=== PATIENT | female | born 1945 | race Caucasian/White ===

== ENCOUNTER 2016-12-05 13:08 | Inpatient (IN) | payer OTHER, MEDICARE ==
[~2016-12-05] VITALS: Ht 162.6 cm; Wt 109.0 kg
[~2016-12-05 13:08] MED LIST: BUME1TAB PO; CITRTAB7 PO; CYMB30CA PO; DABI150 PO; DILT-10 PO; GLUM500T PO; KLOR20TA6 PO; LEVO100T4 PO; MECL25 PO; METO50TA PO; METO50TA11 PO; NEXI40GR PO; OCUVTAB PO; PREG100 PO; [UNRECOGNIZED DRUG - CODE] PO
[2016-12-05 13:11] VITALS: BP 97/64; PULSE 73; RESP 14; TEMP 98.2; O2SAT 93
[2016-12-05] MEDS ORDERED: BUME1TAB PO (14:03)
[2016-12-05] MEDS ORDERED: LEVO75TA3 PO (14:03)
[2016-12-05] MEDS ORDERED: POTA-163 PO (14:03)
[2016-12-05] MEDS ORDERED: PRAD150C PO (14:03)
[2016-12-05] MEDS ORDERED: CALC12502 PO (14:03)
[2016-12-05] MEDS ORDERED: FENO2.5C PO (14:03)
[2016-12-05] MEDS ORDERED: METO50TA PO (14:03)
[2016-12-05] MEDS ORDERED: SIMV20TA PO (14:03)
[2016-12-05] MEDS ORDERED: CYMB60CA PO (14:03)
[2016-12-05] MEDS ORDERED: DILT1TAB6 PO (14:03)
[2016-12-05] MEDS ORDERED: NEXI40CA PO (14:03)
[2016-12-05] MEDS ORDERED: OCUVTAB PO (14:03)
[2016-12-05] MEDS ORDERED: LYRI100C PO (14:03)
[2016-12-05] MEDS ORDERED: METF500T PO (14:08)
--- NOTE | 2016-12-05 14:11 | PD ---
HPI Chief Complaint: Injury Time Seen by Provider: 14:11 Travel History International Travel<30 days: No Contact w/Intl Traveler<30days: No Traveled to known affect area: No History of Present Illness HPI 71-year-old female with history of hypertension, hyperlipidemia, A. fib, congestive heart failure, anticoagulated on Pradaxa presents to the emergency department for evaluation of left knee injury status post trip and fall. Patient states that [place] she actually tripped over a concrete parking block falling onto her left knee and her outstretched hands. She is complaining of pain and swelling in her left knee, is unable to bear weight on the knee secondary to pain. She also has some pain and soreness in the palms of her hands. Denies head trauma or loss of consciousness. States that she did have a previous stress fracture in her left tibia but otherwise denies any prior injury or trauma to this knee. No other complaints. PFSH Past Medical History Atrial Fibrillation: Yes Cancer: No Cardiac Catheterization: Yes Cardiovascular Problems: Yes (heart failure, stint, a fib) High Cholesterol: Yes Congestive Heart Failure: Yes Diabetes: Yes Patient Takes Glucophage: Yes Diminished Hearing: No Endocrine: No Gastrointestinal Disorders: Yes (GERD) GERD: Yes Hepatitis: No Hiatal Hernia: No Hypertension: Yes Immune Disorder: No Neurologic: No Psychiatric: No Reproductive: No Respiratory: No Immunizations Current: Yes Thyroid Disease: Yes Tetanus Vaccination: < 5 Years Influenza Vaccination: Yes Past Surgical History Abdominal Surgery: Yes (INTERSTEM STIMULATOR hip for bladder) AICD: No Body Medical Devices: [employer] 3058 NEUROSTIMULATOR SERIAL NO. [id number] Cardiac Surgery: Yes (stint 2005) Coronary Stent: Yes (X1) Ear Surgery: No Endocrine Surgery: No Eye Surgery: Yes (anay cateracts 2015 / RIGHT TORN RETINA 2016) Genitourinary Surgery: No Gynecologic Surgery: Yes (hysterectomy 2006) Hysterectomy: Yes Joint Replacement: No Oral Surgery: No Pacemaker: No Thoracic Surgery: No Other Surgery: Yes (BILAT CARPAL TUNNEL , HEMORRHOIDECTOMY) Social History Alcohol Use: Yes Tobacco Use: No Substance Use: No Allergies-Medications (Allergen,Severity, Reaction): Coded Allergies: Procardia (Verified Allergy, Severe, Respiratory Failure, 12/05/16) Soma (Verified Allergy, Severe, Hives, 12/05/16) Talwin (Verified Allergy, Severe, Dizziness, 12/05/16) Tetanus Toxoid (Verified Allergy, Severe, Swelling, 12/05/16) Adhesives (Unverified Allergy, Intermediate, 12/05/16) Reported Meds & Prescriptions Reported Meds & Active Scripts Active Reported Metformin (Metformin HCl) 500 Mg Tab 500 Mg PO BIDPC With meals Simvastatin 20 Mg Tab 20 Mg PO DAILY Pradaxa (Dabigatran) 150 Mg Cap 150 Mg PO BID Ocuvite (Multiple Vitamins W/ Minerals) 1 Tab 1 Tab PO DAILY Nexium (Esomeprazole DR) 40 Mg Capdr 40 Mg PO DAILY Metoprolol Tartrate 50 Mg Tab 50 Mg PO BID Potassium Chloride ER (Potassium Chloride) 20 Meq Tab 20 Meq PO DAILY Lyrica (Pregabalin) 100 Mg Cap 100 Mg PO TID Levothyroxine (Levothyroxine Sodium) 75 Mcg Tab 75 Mcg PO DAILY Fenofibrate 50 Mg Cap 100 Mg PO DAILY Diltiazem ER 24 HR 300 Mg Liz 300 Mg PO DAILY Cymbalta DR (Duloxetine HCl) 60 Mg Capdr 60 Mg PO DAILY Calcium Carbonate 1,250 Mg Tab 600 Mg PO DAILY 1,250 mg calcium carbonate (500 mg elemental calcium) Bumetanide 1 Mg Tab 1 Mg PO DAILY Review of Systems Except as stated in HPI: all other systems reviewed are Neg Physical Exam Narrative GENERAL: Well-nourished and well-developed pleasant female patient in no acute distress. SKIN: Warm and dry. HEAD: Normocephalic and atraumatic. EYES: No injection, drainage, or hyphema noted. PERRLA. EOMI. ENT: No nasal drainage noted. Oropharynx is clear. NECK: Supple and the trachea is midline. CARDIOVASCULAR: Regular rate and rhythm. RESPIRATORY: Breath sounds are equal bilaterally with no accessory muscle use, wheezing, rhonchi, or crackles. MUSCULOSKELETAL: Swelling and bruising of left knee with tenderness to palpation and decreased range of motion. Mild tenderness of left hip. No obvious deformities or cyanosis is present throughout the upper and lower extremities. Patient has full range of motion without any signs of neurovascular compromise. DP pulses are 2+ bilaterally. Sensation is intact. BACK: Nontender without any obvious deformities, bony point tenderness, or crepitus noted throughout the thoracic and lumbar vertebrae. NEUROLOGICAL: Awake, alert, and oriented. Normal speech and gait. Cranial nerves are grossly intact. Data Data Last Documented VS Vital Signs Date Time Temp Pulse Resp B/P Pulse Ox O2 Delivery O2 Flow Rate FiO2 12/05/16 13:11 98.2 73 14 97/64 93 Room Air Orders Knee, Complete (4vws) (12/05/16 14:08) Hand, Complete ([id number]) (12/05/16 14:08) Hand, Complete ([id number]) (12/05/16 14:08) Acetamin-Hydrocod 325-5 Mg ([place] 5-325 (12/05/16 14:15) Hip, Uni(Ap&Lat) W Ap Pelvis (12/05/16 ) Splint Or Brace Apply/Monitor (12/05/16 16:03) Immobilizer Knee 20 Inch (12/05/16 ) Complete Blood Count With Diff (12/05/16 16:58) Prothrombin Time / Inr (Pt) (12/05/16 16:58) Act Partial Throm Time (Ptt) (12/05/16 16:58) Iv Access Insert/Monitor (12/05/16 16:58) Ecg Monitoring (12/05/16 16:58) Oximetry (12/05/16 16:58) Sodium Chloride 0.9% Flush (Ns Flush) (12/05/16 17:00) Chest, Single Ap (12/05/16 16:58) Comprehensive Metabolic Panel (12/05/16 16:58) Urinary Catheter Management TOMEKA.Q8H (12/05/16 16:58) Electrocardiogram (12/05/16 17:02) Ice Cuff (12/05/16 ) Diet 2000 Ada Cons Carb (12/05/16 Dinner) Admit Order (Ed Use Only) (12/05/16 17:39) Consult Orthopedic (12/05/16 ) [facility] Medical Decision Making Medical Screen Exam Complete: Yes Emergency Medical Condition: Yes Differential Diagnosis Fracture versus contusion versus sprain Narrative Course 71-year-old female presents to the emergency department for evaluation of left knee pain status post trip and fall. Patient is afebrile, vital signs are stable. No head trauma or loss of consciousness. She does have swelling in the left knee with pain. All extremities are neurovascularly intact. X-ray imaging of the left knee, left hip and bilateral hands has been ordered and is pending. X-ray of the left knee shows displaced fracture through the midportion of the patella with suprapatellar joint effusion and prepatellar soft tissue swelling. X-ray imaging of the right hand is negative for any acute abnormalities. X-ray imaging of the left hand shows a left fifth distal phalanx fracture. X-ray imaging of the left hip is negative for any acute abnormalities. The patient's left knee is placed in a knee immobilizer. The patient is reporting that she did fracture her left fifth distal phalanx 1 month ago and was already seen at another facility for that fracture, states it is not causing her any pain, on physical exam and is not swollen and she has full range of motion in the finger. Patient will be admitted to medicine service with orthopedic consultation. Physician Communication Physician Communication I spoke with Dr. Melara orthopedic surgeon who requests patient be admitted to medicine with consult to him for surgical repair tomorrow. I spoke with Dr. Banks [facility] who agrees to admit the patient to his service. Diagnosis Primary Impression: Fracture of left patella Qualified Code: S82.002A - Closed displaced fracture of left patella, unspecified fracture morphology, initial encounter Admitting Information Admitting Physician Requests: Admit Bernadette Caceres Dec 05, 2016 14:11
[2016-12-05] MEDS ORDERED: ACETAMINOPHEN/HYDROcodone 325 MG/5 MG TAB PO ONE (14:15)
--- NOTE | 2016-12-05 15:27 | RADRPT ---
EXAM DATE/TIME: 12/05/2016 14:42 [facility] COMPARISON: No previous studies available for comparison. INDICATIONS : Fell today, pain in both palms, the left hip and the left knee MEDICAL HISTORY : None. SURGICAL HISTORY : None. ENCOUNTER: Initial ACUITY: 1 day PAIN SCORE: 7/10 LOCATION: Left hip FINDINGS: Examination of the left hip was performed with AP Pelvis. The primary and secondary trabecular patte rn of the femoral neck is intact. The hip joint is of normal width without significant sclerosis or bony hypertrophy. The acetabulum is grossly intact. A spinal stimulator is projected over the right side of the sacrum. CONCLUSION: Negative trauma study. Gallo Black MD on December 05, 2016 at 15:24 Board Certified Radiologist. This report was verified electronically.
--- NOTE | 2016-12-05 15:29 | RADRPT ---
EXAM DATE/TIME: 12/05/2016 14:59 [facility] COMPARISON: HAND LEFT COMPLETE ([id number]), December 05, 2016, 15:13. INDICATIONS : Fell today, pain in right anterior hand MEDICAL HISTORY : None. SURGICAL HISTORY : None. ENCOUNTER: Initial ACUITY: 1 day PAIN SCORE: 8/10 LOCATION: Right hand FINDINGS: There is no acute fracture or dislocation of the right hand. Joint space narrowing is noted involving the scaphotrapezium and scaphotrapezoid joints, first carpometacarpal joint, first, second and third metacarpophalangeal joints and to a lesser degree the interphalangeal joints of the right hand. Th e findings are suggestive of probable osteoarthritis. CONCLUSION: 1. No acute fracture or dislocation. 2. Joint space narrowing involving the scaphotrapezium and scaphotrapezoid joints, first carpometacar pal joint, first, second and third metacarpophalangeal joints and to a lesser extend the interphalang eal joints of the right hand. These findings are suggestive of osteoarthritis. Carl Caicedo MD on December 05, 2016 at 15:20 Board Certified Radiologist. This report was verified electronically.
--- NOTE | 2016-12-05 15:31 | RADRPT ---
EXAM DATE/TIME: 12/05/2016 15:13 [facility] COMPARISON: No previous studies available for comparison. INDICATIONS: Fell today; left knee pain MEDICAL HISTORY: None. SURGICAL HISTORY: None. ENCOUNTER: Initial ACUITY: 1 day PAIN SCORE: 8/10 LOCATION: Left FINDINGS: There is evidence of an acute mildly displaced fracture involving the mid portion of the patella with extensive prepatellar soft tissue swelling and large suprapatellar knee joint effusion. Mild osteoa rthritis is noted involving the medial femoral tibial joint and the patellofemoral joints. CONCLUSION: 1. Acute displaced fracture through the mid portion of the patella. 2. Large suprapatellar knee joint effusion. 3. Diffuse prepatellar soft tissue swelling. 4. Mild osteoarthritis involving the medial femoral tibial joint and the patellofemoral joint. Carl Caicedo MD on December 05, 2016 at 15:24 Board Certified Radiologist. This report was verified electronically.
--- NOTE | 2016-12-05 15:45 | RADRPT ---
EXAM DATE/TIME: 12/05/2016 15:13 [facility] COMPARISON: No previous studies available for comparison. INDICATIONS : Pain fell today MEDICAL HISTORY : None. SURGICAL HISTORY : None. ENCOUNTER: Initial ACUITY: 1 day PAIN SCORE: 8/10 LOCATION: Left Anterior FINDINGS: AP, lateral and oblique views of left hand were obtained and demonstrate diffuse osteopenia. There is a nondisplaced fracture deformity involving the fifth distal phalanx with mild soft tissue prominenc e. There are no other fractures. There are diffuse degenerative changes with joint space loss, sclero sis and mild hypertrophic change. This is greatest involving the first metacarpocarpal joint with rem odeling. The ulnar styloid is intact. There is no destructive change. CONCLUSION: 1. Nondisplaced fracture involving the fifth distal phalanx. 2. Osteopenia and diffuse osteoarthritic change. Gallo Black MD on December 05, 2016 at 15:41 Board Certified Radiologist. This report was verified electronically.
[2016-12-05] MEDS ORDERED: SODIUM CHLORIDE 0.9% FLUSH 5 ML FLUSH IVF PRN (17:00)
--- NOTE | 2016-12-05 17:28 | RADRPT ---
EXAM DATE/TIME: 12/05/2016 15:17 [facility] COMPARISON: CHEST SINGLE AP, March 19, 2014, 17:56. INDICATIONS : Evaluate for pneumonia, pneumothorax or communicable disease. Pre-op left knee surgery 12/06/16. MEDICAL HISTORY : Hypertension. Congestive heart failure. A-FIB. SURGICAL HISTORY : Stent. ENCOUNTER: Initial ACUITY: 1 day PAIN SCORE: 0/10 LOCATION: Bilateral chest FINDINGS: A single view of the chest demonstrates the lungs to be symmetrically aerated without evidence of mas s, infiltrate or effusion. The heart size is mildly prominent. There is no perihilar edema. Atherosc lerotic changes are again noted in the aorta. Osseous structures are intact. CONCLUSION: Mild cardiomegaly with no evidence of pulmonary edema. Gallo Black MD on December 05, 2016 at 17:26 Board Certified Radiologist. This report was verified electronically.
[2016-12-05 19:07] LABS: AUTOMATED NEUTROPHIL # 6.9 TH/MM3 (1.8-7.7); BASOPHIL # 0.1 TH/MM3 (0-0.2); BASOPHIL % 1.2 % (0.0-2.0); EOSINOPHIL # 0.2 TH/MM3 (0-0.4); EOSINOPHIL % 1.7 % (0.0-4.0); HEMATOCRIT 42.8 % (35.0-46.0); HEMO FLAGS DIFF FINAL; LYMPHOCYTE # 2.2 TH/MM3 (1.0-4.8); MEAN CORPUSCULAR HEMOGLOBIN 30.5 PG (27.0-34.0); MEAN CORPUSCULAR HGB CONC 34.3 % (32.0-36.0); MONO % 10.3 % (0.0-8.0); NEUT % 65.8 % (16.0-70.0); PLATELET COUNT 197 TH/MM3 (150-450); RED CELL DISTRIBUTION WIDTH 14.8 % (11.6-17.2); WHITE BLOOD COUNT 10.4 TH/MM3 (4.0-11.0)
[2016-12-05 19:18] LABS: APTT (PATIENT) 28.1 SEC (24.3-30.1); INTERNATIONAL NORMALIZED RATIO 1.1 RATIO; PROTHROMBIN TIME - PATIENT 12.7 SEC (9.8-11.6)
[2016-12-05 19:38] LABS: ANION GAP 8 MEQ/L (5-15); AST (GOT) 24 U/L (15-37); BICARBONATE 27.5 MEQ/L (21.0-32.0); BLOOD UREA NITROGEN 19 MG/DL (7-18); CHLORIDE 104 MEQ/L (98-107); GLOMERULAR FILTRATION RATE 61 ML/MIN (>89); POTASSIUM 3.4 MEQ/L (3.5-5.1); SODIUM (NA) 139 MEQ/L (136-145)
[2016-12-05 19:41] LABS: ALKALINE PHOSPHATASE 68 U/L (45-117); ALT (GPT) 21 U/L (10-53); TOTAL BILIRUBIN ADULT 0.7 MG/DL (0.2-1.0)
[2016-12-05 20:00] VITALS: BP 127/68; PULSE 75; RESP 18; O2SAT 95
[2016-12-05] MEDS ORDERED: D5-1/2 NS + KCL 20 MEQ INJ 1,000 ML IV SCH (20:24)
[2016-12-05] MEDS ORDERED: MAGNESIUM HYDROXIDE SUSP 30 ML CUP PO PRN (20:30)
[2016-12-05] MEDS ORDERED: NALOXONE HCL 0.4 MG/ML AMP IV PRN (20:30)
[2016-12-05] MEDS ORDERED: SENNOSIDES 8.6 MG TAB PO PRN (20:30)
[2016-12-05] MEDS ORDERED: ACETAMINOPHEN 325 MG TAB PO PRN (20:30)
[2016-12-05] MEDS ORDERED: SODIUM CHLORIDE 0.9% FLUSH 5 ML FLUSH FLUSH PRN (20:30)
[2016-12-05 21:10] VITALS: O2SAT 97
[2016-12-05] MEDS: SODIUM CHLORIDE 0.9% FLUSH 5 ML FLUSH FLUSH SCH (21:38)
[2016-12-05] MEDS: METOPROLOL TARTRATE 50 MG TAB PO SCH (21:52)
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
[2016-12-05] MEDS ORDERED: HEPARIN-D5W INJ 250 ML IV SCH (23:15)
[2016-12-05] MEDS: MORPHINE SULFATE 4 MG/ML INJ IV PUSH PRN (23:35)
[2016-12-05] MEDS: ONDANSETRON HCL 4 MG/2 ML VIAL IVP PRN (23:35)
[2016-12-06 02:25] VITALS: BP 109/65; PULSE 62; RESP 18; O2SAT 94
[2016-12-06 04:36] LABS: AUTOMATED NEUTROPHIL # 4.8 TH/MM3 (1.8-7.7); BASOPHIL # 0.1 TH/MM3 (0-0.2); BASOPHIL % 1.3 % (0.0-2.0); EOSINOPHIL # 0.3 TH/MM3 (0-0.4); HEMATOCRIT 38.8 % (35.0-46.0); HEMO FLAGS DIFF FINAL; LYMPH % 26.5 % (9.0-44.0); LYMPHOCYTE # 2.2 TH/MM3 (1.0-4.8); MEAN CELL VOLUME 88.5 FL (80.0-100.0); MEAN CORPUSCULAR HGB CONC 33.9 % (32.0-36.0); MONO % 12.2 % (0.0-8.0); PLATELET COUNT 181 TH/MM3 (150-450); RED BLOOD COUNT 4.38 MIL/MM3 (4.00-5.30); RED CELL DISTRIBUTION WIDTH 15.2 % (11.6-17.2); WHITE BLOOD COUNT 8.5 TH/MM3 (4.0-11.0)
[2016-12-06 04:54] LABS: APTT (PATIENT) 47.5 SEC (24.3-30.1)
[2016-12-06 05:00] LABS: BICARBONATE 25.5 MEQ/L (21.0-32.0); POTASSIUM 3.8 MEQ/L (3.5-5.1)
[2016-12-06] MEDS: LEVOTHYROXINE SODIUM 75 MCG TAB PO SCH (06:00)
[2016-12-06 06:51] VITALS: BP 137/63; PULSE 87; RESP 18; O2SAT 99
[2016-12-06] MEDS: MORPHINE SULFATE 4 MG/ML INJ IV PUSH PRN (07:27)
--- NOTE | 2016-12-06 07:35 | PD.ORT.PN ---
Subjective Subjective Remarks [place] was at dog park coming back to car when tripping over a parking curb. Fell down onto left knee. Had immediate pain and was unable to stand. Brought to the emergency room and x-rays reveal a comminuted left patella fracture. She is in a knee immobilizer Objective Vitals Vital Signs Date Time Temp Pulse Resp B/P Pulse Ox O2 Delivery O2 Flow Rate FiO2 12/06/16 06:51 87 18 137/63 99 Room Air 12/06/16 02:25 62 18 109/65 94 Room Air 12/05/16 23:35 18 12/05/16 21:10 97 Room Air 12/05/16 20:00 75 18 127/68 95 12/05/16 13:11 98.2 73 14 97/64 93 Room Air Result Diagram: 12/06/16 0408 12/06/16 0408 Other Results Laboratory Tests Test 12/05/16 18:30 Prothrombin Time 12.7 SEC (9.8-11.6) Prothromb Time International 1.1 RATIO Ratio Imaging Last 24 hours Impressions Chest X-Ray 12/05/16 1658 Signed Impressions: Service Date/Time: Monday, December 05, 2016 15:17 - CONCLUSION: Mild cardiomegaly with no evidence of pulmonary edema. Gallo Black MD Knee X-Ray 12/05/161407 Signed Impressions: Service Date/Time: Monday, December 05, 2016 15:13 - CONCLUSION: 1. Acute displaced fracture through the mid portion of the patella. 2. Large suprapatellar knee joint effusion. 3. Diffuse prepatellar soft tissue swelling. 4. Mild osteoarthritis involving the medial femoral tibial joint and the patellofemoral joint. Carl Caicedo MD Hand X-Ray 12/05/16 140 Signed Impressions: Service Date/Time: Monday, December 05, 2016 15:13 - CONCLUSION: 1. Nondisplaced fracture involving the fifth distal phalanx. 2. Osteopenia and diffuse osteoarthritic change. Gallo Black MD Hand X-Ray 12/05/161407 Signed Impressions: Service Date/Time: Monday, December 05, 2016 14:59 - CONCLUSION: 1. No acute fracture or dislocation. 2. Joint space narrowing involving the scaphotrapezium and scaphotrapezoid joints, first carpometacarpal joint, first, second and third metacarpophalangeal joints and to a lesser extend the interphalangeal joints of the right hand. These findings are suggestive of osteoarthritis. Carl Caicedo MD Objective Remarks Bilateral upper extremities: Full range of motion neurovascularly intact Right lower extremity: Full range of motion neurovascular intact Left lower extremity: Knee immobilizer and ice cuff in place. Minimal pain with palpation and movement of hip. Distally intact sensation with good capillary refills. Skin intact over patella with moderate swelling. Intact sensation distally Assessment & Plan Assessment and Plan Left comminuted mildly displaced patella fracture Due to alignment of patella is recommended that we treat this nonoperatively. She will have ice cuff removed and remain in knee immobilizer at all times. No flexion of the knee and no active leglifts or quad sets PT for 50% weightbearing on the left lower extremity If safe with physical therapy may be discharged home. Follow-up x-rays will be performed in 2 weeks to evaluate fracture alignment. Risks with delayed healing of diabetes is discussed. GALLO RECIO PA-C Dec 06, 2016 07:35
[2016-12-06] MEDS ORDERED: WALKER/ADULT/FO1 MIS (07:38)
--- NOTE | 2016-12-06 08:58 | MB ---
cc: HETAL PINEDA DATE OF ADMISSION 12/05/2069 DATE OF CONSULTATION 12/06/2016 REASON FOR CONSULTATION Left patella fracture. CONSULTING PHYSICIAN Dr. Banks ERVIN Wallace is a 71-year-old female who describes a mechanical fall. She was walking her dog to the park. She fell and landed on her left knee. She had immediate left knee pain. She had difficulty standing or ambulating. She had swelling and pain around the left knee. She presented emergency room where x-rays reveal a left patella fracture. She also has a nondisplaced fracture of the left hand fifth finger distal phalanx. The pain is worse with movement of her knee is improved with rest. She denies any dizziness, syncope or loss of consciousness. She did not hit her head. PAST MEDICAL HISTORY ILLNESSES 1. Hypothyroidism. 2. CHF. 3. Coronary artery disease. 4. Atrial fibrillation. 5. Reflux. 6. Type 2 diabetes. 7. Arthritis. 8. Hypertension. 9. Peripheral neuropathy. 10. History of pulmonary embolism. SURGICAL HISTORY 1. Bilateral cataracts, 2. Retinal detachment repair. 3. Cardiac stent placement. 4. Bilateral carpal tunnel syndrome. 5. Hemorrhoidectomy. 6. Hysterectomy. MEDICATIONS 1. Metformin. 2. Simvastatin. 3. Pradaxa. 4. Ocuvite. 5. Nexium. 6. Metoprolol. 7. Potassium. 8. Lyrica. 9. Levothyroxine. 10. Fenofibrate. 11. Calcium. 12. Bumetanide. ALLERGIES PROCARDIA. SOMA. TALWIN. TETANUS. ADHESIVES. FAMILY HISTORY Positive for CVA and diabetes in her mother and coronary artery disease in father. SOCIAL HISTORY The patient rarely drinks alcohol. She quit smoking 40 years ago. REVIEW OF SYSTEMS The patient denies headache, visual changes, neck pain, chest pain, abdominal pain, nausea, vomiting, recent weight loss or numbness or tenting of extremities. She complains of left knee pain. She has chronic low back pain. She has a history of urinary incontinence. PHYSICAL EXAMINATION GENERAL: The patient is a well-developed, well-nourished 71-year-old female in no acute distress. She is awake and alert. She is alert and oriented x 3. VITAL SIGNS: Temperature 98.2, pulse 87, respirations 18, blood pressure 137/63, O2 sat 99% on room air. HEAD: The patient is normocephalic. Pupils are equal. NECK: Soft, nontender. Trachea is midline. ABDOMEN: Soft, nontender, nondistended. EXTREMITIES: Examination of bilateral upper extremities reveals no significant pain with shoulder, elbow or wrist motion. She has intact sensation in all fingers. She has good capillary refill in all fingers. Radial pulses palpable. She does have some tenderness along her left distal fifth finger. Radial pulses are palpable. Examination of right leg reveals no pain with hip, knee or ankle motion. Skin is intact. Dorsalis pedis pulse is palpable. Sensation is intact. Examination of the left leg reveals no tenderness around her hip ankle or foot. Sensation is intact in her left foot. Dorsalis pedis pulses palpable. She is diffusely tender to palpation over the left knee. Skin is intact. There is swelling around the left knee. X-RAYS X-rays of left knee were reviewed. X-rays reveal a mildly displaced left patella fracture. There is a small step-off of the articular surface. IMPRESSION Mildly displaced left patella fracture. PLAN The treatment options were discussed with the patient. I discussed both surgical and nonsurgical options. At this point the fracture is relatively well-aligned. There is a small step-off of the articular surface. Given the patient's multiple medical problems, I feel that nonoperative treatment may be in her best interest. The risks of surgery include bleeding, infection, injury to arteries, nerves and blood vessels, painful hardware, wound complications, infection as well as medical complications including blood clot, stroke, heart attack and were discussed. At this point the patient would like to proceed with nonoperative treatment. She will remain in a knee immobilizer. Physical Therapy will be consulted. She may partial weight-bear up to 50% with knee immobilizer on. She will need to follow up in clinic in 1-2 weeks for repeat x-rays of the left knee. If fracture displaces, surgical intervention may become necessary. All questions were answered. A mid-level provider in my office, nurse practitioner or PA, may see this patient on a follow-up basis and continue to implement the objective of this plan including: Starting or adjusting medications, injections of muscle, tendon, bursa or joints, cast application, orthotic or brace application, physical therapy, further radiographic studies including x-ray, MRI, CT, ultrasounds or bone scan, vascular studies, neurologic studies, or other specialist consultations, and proceeding with surgical management as appropriate. MD MAGED Soto/DIAZ /8:14 AM /8:46 AM
[2016-12-06] MEDS ORDERED: FENOFIBRATE 48 MG TAB PO SCH (09:00)
[2016-12-06] MEDS ORDERED: HYDR-3533 PO (09:39)
--- NOTE | 2016-12-06 09:49 | HHI.PR ---
Subjective Remarks Patient seen in follow-up for left patella fracture secondary to mechanical fall and multiple medical problems listed below. She reports having significant pain about the left knee. IV pain medication is helping. Awaiting evaluation from physical therapy. Patient reports that she lives by herself. She is not sure that she can function on her own at this point. Her works out of state. Objective Vitals Vital Signs Date Time Temp Pulse Resp B/P Pulse Ox O2 Delivery O2 Flow Rate FiO2 12/06/16 06:51 87 18 137/63 99 Room Air 12/06/16 02:25 62 18 109/65 94 Room Air 12/05/16 23:35 18 12/05/16 21:10 97 Room Air 12/05/16 20:00 75 18 127/68 95 12/05/16 13:11 98.2 73 14 97/64 93 Room Air Result Diagram: 12/06/16 0408 12/06/16 0408 Imaging Last Impressions Chest X-Ray 12/05/16 1658 Signed Impressions: Service Date/Time: Monday, December 05, 2016 15:17 - CONCLUSION: Mild cardiomegaly with no evidence of pulmonary edema. Gallo Black MD Knee X-Ray 12/05/16 1408 Signed Impressions: Service Date/Time: Monday, December 05, 2016 15:13 - CONCLUSION: 1. Acute displaced fracture through the mid portion of the patella. 2. Large suprapatellar knee joint effusion. 3. Diffuse prepatellar soft tissue swelling. 4. Mild osteoarthritis involving the medial femoral tibial joint and the patellofemoral joint. Carl Caicedo MD Hand X-Ray 12/05/16 1408 Signed Impressions: Service Date/Time: Monday, December 05, 2016 15:13 - CONCLUSION: 1. Nondisplaced fracture involving the fifth distal phalanx. 2. Osteopenia and diffuse osteoarthritic change. Gallo Black MD Hip and Pelvis X-Ray 12/05/16 0000 Signed Impressions: Service Date/Time: Monday, December 05, 2016 14:42 - CONCLUSION: Negative trauma study. Gallo Black MD Objective Remarks GENERAL: Obese female in no acute distress CARDIOVASCULAR: Normal rate and regular rhythm without murmurs, gallops, or rubs. RESPIRATORY: Good respiratory efforts. Breath sounds equal and clear to auscultation bilaterally. GASTROINTESTINAL: Abdomen soft, non-tender, non-distended. Normal active bowel sounds MUSCULOSKELETAL: Left knee is splinted. She is neurovascularly intact distally at the toes. Rest of the major joints are intact. NEURO: Alert & Oriented x4 to person, place, time, situation. Moves all ext x4 PSYCH: Appropriate mood and affect. A/P Problem List: (1) Fracture of left patella ICD Code: S82.002A Status: Acute (2) Type 2 diabetes mellitus ICD Code: E11.9 Status: Chronic (3) Hypokalemia ICD Code: E87.6 Status: Acute (4) Hypothyroidism ICD Code: E03.9 Status: Acute (5) Acute renal insufficiency ICD Code: N28.9 Status: Acute (6) Coronary artery disease ICD Code: I25.10 Status: Chronic (7) GERD (gastroesophageal reflux disease) ICD Code: K21.9 Status: Chronic Assessment and Plan 71-year-old female admitted with: . Left patella fracture a patient with chronic anticoagulation on pradaxa for AFib -The patient was evaluated by orthopedic surgery who advised conservative management. Patient is to follow-up in the orthopedic clinic as scheduled. - Patient will likely need residential facility. Does not appear to be safe to go back home. Physical therapy to evaluate. - Continue pain medication as needed, including IV. Diabetes Mellitus - takes metformin as an outpatient - Accuchecks and sliding scale insulin. Hypothyroidism -Continue home Synthroid CAD - resume home beta salvatore and statins GERD - Protonix 40 mg by mouth daily DVT prophylaxis - SCDs Discharge Planning Continue pain control. Physical therapy to evaluate. If her pain can be controlled with oral medications, she will likely be discharged in the next 24- 48 hours to a residential facility. Problem Qualifiers (1) Fracture of left patella: Qualified Code: S82.002A - Closed displaced fracture of left patella, unspecified fracture morphology, initial encounter (2) Type 2 diabetes mellitus: (3) Hypothyroidism: Qualified Code: E03.9 - Hypothyroidism, unspecified type Ariel Banks MD Dec 06, 2016 09:49
[2016-12-06] MEDS: METOPROLOL TARTRATE 50 MG TAB PO SCH ×2 (09:52→21:41)
[2016-12-06] MEDS: PRAVASTATIN SOD 40 MG TAB PO SCH (09:52)
[2016-12-06] MEDS: PANTOPRAZOLE SOD 40 MG DELAYED RELEASE TAB PO SCH (09:52)
[2016-12-06] MEDS: DILTIAZEM-CD 300 MG CAP ER PO SCH (09:54)
[2016-12-06] MEDS: DULoxetine HCl DR 60 MG CAP PO SCH (09:54)
[2016-12-06] MEDS: BUMETANIDE 1 MG TAB PO SCH (09:55)
[2016-12-06] MEDS: POTASSIUM CHLORIDE 20 MEQ CONTROLLED RELEASE TAB PO SCH (09:56)
[2016-12-06] MEDS: FENOFIBRATE 48 MG TAB PO SCH (09:56)
[2016-12-06] MEDS: SODIUM CHLORIDE 0.9% FLUSH 5 ML FLUSH FLUSH SCH ×2 (09:57→21:41)
[2016-12-06 12:24] VITALS: BP 119/75; PULSE 72; RESP 18; O2SAT 96
[2016-12-06] MEDS: ACETAMINOPHEN/HYDROcodone 325 MG/7.5 MG TAB PO PRN ×2 (14:56→21:41)
[2016-12-06 17:00] VITALS: BP 122/60; PULSE 75; RESP 18; O2SAT 95
[2016-12-06 20:17] VITALS: BP 126/63; PULSE 83; RESP 18; TEMP 98.3; O2SAT 94
[2016-12-06 20:50] VITALS: BP 119/60; PULSE 76; RESP 18; TEMP 98.4; O2SAT 94
[2016-12-06] MEDS: DABIGATRAN ETEXILATE 150 MG CAP PO SCH (21:41)
--- NOTE | 2016-12-06 22:33 | EKG ---
Date Performed: 12/05/2016 Time Performed: 18:09:05 PTAGE: 71 years EKG: ATRIAL FIBRILLATION NONSPECIFIC ST & T-WAVE ABNORMALITY ABNORMAL RHYTHM ECG PREVIOUS TRACING : 01/20/2016 08.34 Compared to the previous tracing, ST/T wave changes were mo re extensive DOCTOR: Darvin De León Interpretating Date/Time 12/06/2016 22:32:19
[2016-12-07] VITALS: BP 125/85; PULSE 76; RESP 20; TEMP 99.3; O2SAT 96
[2016-12-07] MEDS: ACETAMINOPHEN/HYDROcodone 325 MG/7.5 MG TAB PO PRN ×3 (02:43→17:31)
[2016-12-07 04:00] VITALS: BP 104/67; PULSE 70; RESP 20; TEMP 98.4; O2SAT 95
[2016-12-07] MEDS: LEVOTHYROXINE SODIUM 75 MCG TAB PO SCH (06:13)
--- NOTE | 2016-12-07 06:49 | PD.ORT.PN ---
Subjective Subjective Remarks Pain controlled but having difficulty ambulating at 50% weightbearing due to neuropathy. Lives alone the majority of the time. Her is gone for a week or 2 at a time Objective Vitals Vital Signs Date Time Temp Pulse Resp B/P Pulse Ox O2 Delivery O2 Flow Rate FiO2 12/07/16 04:00 98.4 70 20 104/67 95 12/07/16 00:00 99.3 76 20 125/85 96 12/06/16 20:50 98.4 76 18 119/60 94 12/06/16 20:17 98.3 83 18 126/63 94 Room Air 12/06/16 17:00 75 18 122/60 95 Room Air 12/06/16 12:24 72 18 119/75 96 Room Air 12/06/16 06:51 87 18 137/63 99 Room Air I/O 12/06/16 12/06/16 12/06/16 12/07/16 12/07/16 12/07/16 07:00 15:00 23:00 07:00 15:00 23:00 Intake Total 220 ml Output Total 400 ml Balance -180 ml Intake Oral 220 ml Output Urine Total 400 ml Stool Total 0 ml Result Diagram: 12/06/16 0408 12/06/16 0408 Imaging Last 24 hours Impressions Chest X-Ray 12/05/168 Signed Impressions: Service Date/Time: Monday, December 05, 2016 15:17 - CONCLUSION: Mild cardiomegaly with no evidence of pulmonary edema. Katie Black MD Knee X-Ray 12/05/161407 Signed Impressions: Service Date/Time: Monday, December 05, 2016 15:13 - CONCLUSION: 1. Acute displaced fracture through the mid portion of the patella. 2. Large suprapatellar knee joint effusion. 3. Diffuse prepatellar soft tissue swelling. 4. Mild osteoarthritis involving the medial femoral tibial joint and the patellofemoral joint. Carl Caicedo MD Hand X-Ray 12/05/161407 Signed Impressions: Service Date/Time: Monday, December 05, 2016 15:13 - CONCLUSION: 1. Nondisplaced fracture involving the fifth distal phalanx. 2. Osteopenia and diffuse osteoarthritic change. Katie Black MD Hand X-Ray 12/05/161407 Signed Impressions: Service Date/Time: Monday, December 05, 2016 14:59 - CONCLUSION: 1. No acute fracture or dislocation. 2. Joint space narrowing involving the scaphotrapezium and scaphotrapezoid joints, first carpometacarpal joint, first, second and third metacarpophalangeal joints and to a lesser extend the interphalangeal joints of the right hand. These findings are suggestive of osteoarthritis. Carl Caicedo MD Objective Remarks Bilateral upper extremities: Full range of motion neurovascularly intact Right lower extremity: Full range of motion neurovascular intact Left lower extremity: Knee immobilizer, ice cuff removed. Minimal pain with palpation and movement of hip. Distally intact sensation with good capillary refills. Skin intact over patella with moderate swelling. Intact sensation distally Assessment & Plan Assessment and Plan Left comminuted mildly displaced patella fracture Due to alignment of patella is recommended that we treat this nonoperatively. She will have ice cuff removed and remain in knee immobilizer at all times. No flexion of the knee and no active leglifts or quad sets PT for 50% weightbearing on the left lower extremity Physical therapy to evaluate rehabilitation discharge versus home. Recommend rehabilitation due to neuropathy, gait instability and being home alone the majority of the time Follow-up x-rays will be performed in 2 weeks to evaluate fracture alignment. Risks with delayed healing of diabetes is discussed. KATIE RECIO PA-C Dec 07, 2016 06:49
[2016-12-07 08:00] VITALS: BP 107/70; PULSE 73; RESP 18; TEMP 97.2; O2SAT 96
[2016-12-07] MEDS: DILTIAZEM-CD 300 MG CAP ER PO SCH (08:35)
[2016-12-07] MEDS: PRAVASTATIN SOD 40 MG TAB PO SCH (08:35)
[2016-12-07] MEDS: DULoxetine HCl DR 60 MG CAP PO SCH (08:35)
[2016-12-07] MEDS: BUMETANIDE 1 MG TAB PO SCH (08:35)
[2016-12-07] MEDS: PANTOPRAZOLE SOD 40 MG DELAYED RELEASE TAB PO SCH (08:36)
[2016-12-07] MEDS: METOPROLOL TARTRATE 50 MG TAB PO SCH (08:36)
[2016-12-07] MEDS: DABIGATRAN ETEXILATE 150 MG CAP PO SCH (08:37)
[2016-12-07] MEDS: POTASSIUM CHLORIDE 20 MEQ CONTROLLED RELEASE TAB PO SCH (08:37)
[2016-12-07] MEDS: SODIUM CHLORIDE 0.9% FLUSH 5 ML FLUSH FLUSH SCH (08:37)
[2016-12-07] MEDS: FENOFIBRATE 48 MG TAB PO SCH (08:37)
[2016-12-07 12:00] VITALS: BP 109/71; PULSE 78; RESP 18; TEMP 97.3; O2SAT 95
[2016-12-07] MEDS ORDERED: PERI8.6T PO (13:23)
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
[2016-12-07] MEDS: ONDANSETRON HCL 4 MG/2 ML VIAL IVP PRN (15:48)
== END 2016-12-07 17:38 | DRG 563 ==
LOC: NEPA 13:08 → NEDA 17:41 → NEDH 19:56 → N06B 12-06 20:52
PROVIDERS: ADMIT Family Medicine; ATTEND Family Medicine
DX: S82.092A Other fracture of left patella, initial encounter for closed fracture (principal); I50.9 Heart failure, unspecified; I48.91 Unspecified atrial fibrillation; G62.9 Polyneuropathy, unspecified; E86.0 Dehydration; E03.9 Hypothyroidism, unspecified; E78.5 Hyperlipidemia, unspecified; I10 Essential (primary) hypertension; E11.40 Type 2 diabetes mellitus with diabetic neuropathy, unspecified; W01.0XXA Fall on same level from slipping, tripping and stumbling without subsequent striking against object, initial encounter; Y93.K1 Activity, walking an animal; Y92.830 Public park as the place of occurrence of the external cause; N28.9 Disorder of kidney and ureter, unspecified; Z79.02 Long term (current) use of antithrombotics/antiplatelets; Z79.84 Long term (current) use of oral hypoglycemic drugs; E87.6 Hypokalemia; I25.10 Atherosclerotic heart disease of native coronary artery without angina pectoris; Z95.5 Presence of coronary angioplasty implant and graft; Z86.711 Personal history of pulmonary embolism; M46.90 Unspecified inflammatory spondylopathy, site unspecified; M19.90 Unspecified osteoarthritis, unspecified site; M54.2 Cervicalgia; G89.29 Other chronic pain; K21.9 Gastro-esophageal reflux disease without esophagitis; S62.667D Nondisplaced fracture of distal phalanx of left little finger, subsequent encounter for fracture with routine healing; Z87.891 Personal history of nicotine dependence
CPT/HCPCS: 71010; 73130; 73502; 73564; 80048; 80053; 85025; 85610; 85730; 93005; 99285; J1644; J2270; J2405; J3480; L1830

== ENCOUNTER 2017-07-23 14:29 | Inpatient (IN) | payer OTHER, MEDICARE ==
[~2017-07-23] VITALS: Ht 175.3 cm; Wt 107.5 kg
[~2017-07-23 14:29] MED LIST changes: +CALC12502 PO; -CITRTAB7 PO; -CYMB30CA PO; +CYMB60CA PO; -DABI150 PO; -DILT-10 PO; +DILT1TAB6 PO; +FENO2.5C PO; -GLUM500T PO; +HYDR-3533 PO; -KLOR20TA6 PO; -LEVO100T4 PO; +LEVO75TA3 PO; +LYRI100C PO; -MECL25 PO; +METF500T PO; -METO50TA11 PO; +NEXI40CA PO; -NEXI40GR PO; +PERI8.6T PO; +POTA-163 PO; +PRAD150C PO; -PREG100 PO; +SIMV20TA PO; +WALKER/ADULT/FO1 MIS; -[UNRECOGNIZED DRUG - CODE] PO
[2017-07-23 14:38] VITALS: BP 121/76; PULSE 72; RESP 17; TEMP 98.4; O2SAT 93
--- NOTE | 2017-07-23 14:49 | PD ---
HPI Chief Complaint: Neuro Symptoms/ Deficits Time Seen by Provider: 14:49 Travel History International Travel<30 days: No Contact w/Intl Traveler<30days: No Traveled to known affect area: No History of Present Illness HPI 72-year-old female came to the emergency room brought by EMS for strokelike symptoms. Her called 911. As per EMS he spoke with her last when she sounded normal at 10:13 PM last night. After that at 9:30 AM today when he wanted to speak with her she did not make much sense on the phone. That's when he called 911. Patient arrived to the emergency room close to 3 PM. was not there at that time and the history was mainly obtained by EMS. Patient seemed a phasic to give any significant history. She has history of atrial fibrillation and is on Pradaxa but stopped taking it for a dental procedure. Patient denies any chest pain. Her blood sugar on route was 100. No prior history of stroke. Rest of the vital signs were within normal limits. [facility] Past Medical History Narrative Medical List of her past medical, surgical, social and family history was reviewed from the nursing note. Atrial Fibrillation: Yes Cancer: No Cardiac Catheterization: Yes Cardiovascular Problems: Yes (heart failure, stint, a fib) High Cholesterol: Yes Congestive Heart Failure: Yes Diabetes: Yes Patient Takes Glucophage: Yes Diminished Hearing: No Endocrine: No Gastrointestinal Disorders: Yes (GERD) GERD: Yes Hepatitis: No Hiatal Hernia: No Hypertension: Yes Immune Disorder: No Neurologic: No Psychiatric: No Reproductive: No Respiratory: No Immunizations Current: Yes Thyroid Disease: Yes Past Surgical History Abdominal Surgery: Yes (INTERSTEM STIMULATOR hip for bladder) AICD: No Body Medical Devices: MEDTRON[employer] 3058 NEUROSTIMULATOR SERIAL NO. [id number] Cardiac Surgery: Yes (stint 2005) Coronary Stent: Yes (X1) Ear Surgery: No Endocrine Surgery: No Eye Surgery: Yes (anay cateracts 2015 / RIGHT TORN RETINA 2016) Genitourinary Surgery: No Gynecologic Surgery: Yes (hysterectomy 2005) Hysterectomy: Yes Joint Replacement: No Oral Surgery: No Pacemaker: No Thoracic Surgery: No Other Surgery: Yes (BILAT CARPAL TUNNEL , HEMORRHOIDECTOMY) Social History Alcohol Use: Yes Tobacco Use: No Substance Use: No Allergies-Medications (Allergen,Severity, Reaction): Coded Allergies: carisoprodol (Unverified Allergy, Severe, Hives, 07/23/17) nifedipine (Unverified Allergy, Severe, Respiratory Failure, 07/23/17) pentazocine (Unverified Allergy, Severe, Dizziness, 07/23/17) tetanus toxoid, adsorbed (Unverified Allergy, Severe, Swelling, 07/23/17) adhesive (Unverified Allergy, Intermediate, 07/23/17) Comments List of her allergies reviewed from the nursing note. Reported Meds & Prescriptions Reported Meds & Active Scripts Active Reported Vision Vitamins (Beta-Carotene(A)-Vits C,E/Mins) 1 Each Tablet 1,000 Unit PO DAILY Metformin (Metformin HCl) 500 Mg Tab 500 Mg PO BIDPC With meals Simvastatin 20 Mg Tab 20 Mg PO DAILY Pradaxa (Dabigatran) 150 Mg Cap 150 Mg PO BID Ocuvite (Multiple Vitamins W/ Minerals) 1 Tab 1 Tab PO DAILY Nexium (Esomeprazole DR) 40 Mg Capdr 40 Mg PO DAILY Metoprolol Tartrate 50 Mg Tab 50 Mg PO BID Potassium Chloride ER (Potassium Chloride) 20 Meq Tab 20 Meq PO DAILY Lyrica (Pregabalin) 100 Mg Cap 100 Mg PO TID Levothyroxine (Levothyroxine Sodium) 75 Mcg Tab 75 Mcg PO DAILY Fenofibrate 50 Mg Cap 160 Mg PO DAILY Diltiazem ER 24 HR 300 Mg Liz 300 Mg PO DAILY Cymbalta DR (Duloxetine HCl) 60 Mg Capdr 60 Mg PO DAILY Bumetanide 1 Mg Tab 1 Mg PO DAILY Narrative Medication List of her home medications reviewed from the nursing note. Review of Systems Except as stated in HPI: all other systems reviewed are Neg Physical Exam Narrative GENERAL: Awake, alert, obese, no obvious distress, anxious SKIN: Focused skin assessment warm/dry. HEAD: Atraumatic. Normocephalic. EYES: Pupils equal and round. No scleral icterus. No injection or drainage. ENT: No nasal bleeding or discharge. Mucous membranes pink and moist. NECK: Trachea midline. No JVD. CARDIOVASCULAR: Regular rate and rhythm. No murmur appreciated. RESPIRATORY: No accessory muscle use. Clear to auscultation. Breath sounds equal bilaterally. GASTROINTESTINAL: Abdomen soft, non-tender, nondistended. Hepatic and splenic margins not palpable. MUSCULOSKELETAL: No obvious deformities. No clubbing. No cyanosis. No edema. NEUROLOGICAL: Awake and alert. Slight facial droop. Motor grossly within normal limits. Aphasia, expressive aphasia. NIH stroke score of 6 PSYCHIATRIC: Appropriate mood and affect; insight and judgment normal. Data Data Last Documented VS Orders Orders Electrocardiogram (07/23/17 15:10) Prothrombin Time / Inr (Pt) (07/23/17 15:10) Complete Blood Count With Diff (07/23/17 15:10) Basic Metabolic Panel (Bmp) (07/23/17 15:10) Creatine Kinase (Cpk) (07/23/17 15:10) Troponin I (07/23/17 15:10) Urinalysis - C+S If Indicated (07/23/17 15:10) Ct Brain W/O Iv Contrast(Rout) (07/23/17 15:10) Chest, Single Ap (07/23/17 15:10) Ecg Monitoring (07/23/17 15:10) Iv Access Insert/Monitor (07/23/17 15:10) Oximetry (07/23/17 15:10) Sodium Chloride 0.9% Flush (Ns Flush) (07/23/17 15:15) Sodium Chlorid 0.9% 500 Ml Inj (Ns 500 M (07/23/17 15:15) Aspirin (Aspirin) (07/23/17 16:30) Us Carotid Arteries Comp Bilat (07/23/17 ) Admit Order (Ed Use Only) (07/23/17 16:35) Labs Laboratory Tests Test 07/23/17 15:25 White Blood Count 9.3 TH/MM3 Red Blood Count 4.67 MIL/MM3 Hemoglobin 14.1 GM/DL Hematocrit 42.0 % Mean Corpuscular Volume 90.0 FL Mean Corpuscular Hemoglobin 30.3 PG Mean Corpuscular Hemoglobin Concent 33.6 % Red Cell Distribution Width 14.9 % Platelet Count 238 TH/MM3 Mean Platelet Volume 10.2 FL Neutrophils (%) (Auto) 64.9 % Lymphocytes (%) (Auto) 21.1 % Monocytes (%) (Auto) 10.1 % Eosinophils (%) (Auto) 2.8 % Basophils (%) (Auto) 1.1 % Neutrophils # (Auto) 6.1 TH/MM3 Lymphocytes # (Auto) 2.0 TH/MM3 Monocytes # (Auto) 0.9 TH/MM3 Eosinophils # (Auto) 0.3 TH/MM3 Basophils # (Auto) 0.1 TH/MM3 CBC Comment DIFF FINAL Differential Comment Prothrombin Time 12.1 SEC Prothromb Time International Ratio 1.1 RATIO Blood Urea Nitrogen 20 MG/DL Creatinine 1.02 MG/DL Random Glucose 106 MG/DL Calcium Level 9.3 MG/DL Sodium Level 142 MEQ/L Potassium Level 3.7 MEQ/L Chloride Level 106 MEQ/L Carbon Dioxide Level 28.3 MEQ/L Anion Gap 8 MEQ/L Estimat Glomerular Filtration Rate 53 ML/MIN Hemoglobin A1c 6.5 % Total Creatine Kinase 65 U/L Troponin I LESS THAN 0.02 NG/ML MDM Medical Decision Making Medical Screen Exam Complete: Yes Emergency Medical Condition: Yes Medical Record Reviewed: Yes Interpretation(s) Twelve-lead EKG was reviewed by me. Atrial fibrillation, left axis deviation, rate controlled. Heart rate of 63 bpm. Differential Diagnosis CVA, intracranial bleed, intracranial mass Narrative Course 4:29 PM most of the blood test results of back and within acceptable limit. I spoke with the who came up little while later. As per him the Pradaxa was held last Sunday which was 2 days ago since tomorrow she was supposed to get a cardiac catheter in [facility] in [place]. Patient has history of A. fib which he confirmed again. He confirmed that she has never had stroke in the past. CT scan showed a left frontal lobe stroke of questionable chronicity. I discussed the case with Dr. Ravi who agreed the patient is not a TPA candidate given her time of last seen normal as well as the fact that she is on Pardaxa. He recommended a full strength aspirin and admit her to the floor and he would consult. Patient cannot get an MRI in this institution given the fact that she has a bladder stimulator. If the bladder stimulator is turned off she could get an MRI but would have to be transferred to [place]. I discussed this with Dr. Ravi and at that point he decided not to proceed with MRI since it will not change the immediate management. Awaiting for the hospitalist to call back. Procedures EKG Prior to Arrival: No Physician Communication Physician Communication Dr. Ravi Diagnosis Primary Impression: CVA (cerebral vascular accident) Qualified Codes: I63.10 - Cerebral infarction due to embolism of unspecified precerebral artery Admitting Information Admitting Physician Requests: Admit Tomas Daugherty MD Jul 23, 2017 14:49
[2017-07-23] MEDS ORDERED: BETA1TAB5 PO (14:59)
[2017-07-23] MEDS ORDERED: SODIUM CHLORIDE 0.9% FLUSH 10 ML FLUSH IVF PRN (15:15)
[2017-07-23] MEDS ORDERED: SODIUM CHLORID 0.9% 500 ML INJ 500 ML IV ONE (15:15)
[2017-07-23 15:37] LABS: AUTOMATED NEUTROPHIL # 6.1 TH/MM3 (1.8-7.7); BASOPHIL # 0.1 TH/MM3 (0-0.2); BASOPHIL % 1.1 % (0.0-2.0); EOSINOPHIL # 0.3 TH/MM3 (0-0.4); EOSINOPHIL % 2.8 % (0.0-4.0); HEMO FLAGS DIFF FINAL; LYMPH % 21.1 % (9.0-44.0); MEAN CORPUSCULAR HEMOGLOBIN 30.3 PG (27.0-34.0); MEAN CORPUSCULAR HGB CONC 33.6 % (32.0-36.0); MONO % 10.1 % (0.0-8.0); NEUT % 64.9 % (16.0-70.0); PLATELET COUNT 238 TH/MM3 (150-450); RED BLOOD COUNT 4.67 MIL/MM3 (4.00-5.30); RED CELL DISTRIBUTION WIDTH 14.9 % (11.6-17.2); WHITE BLOOD COUNT 9.3 TH/MM3 (4.0-11.0)
[2017-07-23 15:46] LABS: INTERNATIONAL NORMALIZED RATIO 1.1 RATIO; PROTHROMBIN TIME - PATIENT 12.1 SEC (9.8-11.6)
--- NOTE | 2017-07-23 16:01 | RADRPT ---
EXAM DATE/TIME: 07/23/2017 15:14 [facility] COMPARISON: CHEST SINGLE AP, December 05, 2016, 15:17. INDICATIONS : Short of breath. MEDICAL HISTORY : Hypertension. Congestive heart failure. A-FIB. SURGICAL HISTORY : Stent placement. ENCOUNTER: Initial ACUITY: 1 day PAIN SCORE: 0/10 LOCATION: Bilateral chest FINDINGS: There is cardiomegaly. There are mild chronic interstitial changes. The lungs are otherwise clear. Th e bony structures are grossly intact. CONCLUSION: 1. Cardiomegaly. Stable examination compared to previous. Jose Giordano MD on July 23, 2017 at 15:59 Board Certified Radiologist. This report was verified electronically.
[2017-07-23 16:02] LABS: ANION GAP 8 MEQ/L (5-15); BICARBONATE 28.3 MEQ/L (21.0-32.0); BLOOD UREA NITROGEN 20 MG/DL (7-18); CHLORIDE 106 MEQ/L (98-107); GLOMERULAR FILTRATION RATE 53 ML/MIN (>89); POTASSIUM 3.7 MEQ/L (3.5-5.1); SODIUM (NA) 142 MEQ/L (136-145)
--- NOTE | 2017-07-23 16:04 | RADRPT ---
EXAM DATE/TIME: 07/23/2017 15:21 [facility] COMPARISON: No previous studies available for comparison. INDICATIONS : Facial droop on righ side with poor talking ability, CVA. RADIATION DOSE: 56.39 CTDIvol (mGy) MEDICAL HISTORY : Congestive heart failure. Hypertension. Afib. SURGICAL HISTORY : Coronary artery stent. Hysterectomy. ENCOUNTER: Initial ACUITY: 2 days PAIN SCALE: 4/10 LOCATION: Right cranial TECHNIQUE: Multiple contiguous axial images were obtained of the head. Using automated exposure control and adj ustment of the mA and/or kV according to patient size, radiation dose was kept as low as reasonably a chievable to obtain optimal diagnostic quality images. DICOM format image data is available electro nically for review and comparison. FINDINGS: There are findings of ischemic infarct involving the insular cortex on the left side measuring approx imately 3 cm in diameter. No extra-axial collections are identified. There is periventricular hypoden sity compatible with chronic ischemic change slightly more than expected for patient this age. Enamel Drier ior fossa structures are unremarkable. CONCLUSION: 1. Left frontal ischemic infarct as above Mark Nam MD on July 23, 2017 at 16:01 Board Certified Radiologist. This report was verified electronically.
[2017-07-23 16:11] LABS: CREATINE KINASE 65 U/L (26-192)
[2017-07-23] MEDS ORDERED: ASPIRIN 325 MG TAB PO ONE (16:30)
[2017-07-23] MEDS ORDERED: DEXTROSE 50% IN WATER 50 ML VIAL(D50) IV PUSH PRN ×3 (17:00→23:45)
[2017-07-23] MEDS: INSULIN ASPART SUPPLEMENTAL SCALE SQ SCH ×2 (17:00→21:00)
[2017-07-23] MEDS ORDERED: GLUCAGON 1 MG/ML VIAL OTHER PRN ×3 (17:00→23:45)
[2017-07-23] MEDS ORDERED: SODIUM CHLORIDE 0.9% FLUSH 5 ML FLUSH IV FLUSH PRN ×2 (17:00→23:45)
--- NOTE | 2017-07-23 17:13 | HHI.HP ---
[facility] Primary Care Physician Pablo Hercules, DO Admission Diagnosis CVA Diagnoses: Chief Complaint: Slurred speech Travel History International Travel<30 Days: No Contact w/Intl Traveler <30 Da: No Traveled to Known Affected Are: No History of Present Illness 72-year-old female with a past medical history of A. fib, CAD, CHF, HLD, GERD, DM who presented for slurred speech. The patient is seen with her at bedside who assists with the history. The patient states that she was feeling a bit strange last night before bed, but they cannot really elaborate. The patient's states that she seemed fine at that time. Apparently the patient woke up at sometime earlier this morning and was having slurred speech. The patient's talked to her on the phone about 1:30 and after and then notices slurred speech and that is when I called 911. She has been occasionally able to form words, and occasionally slurring nonsensically. Patient's states that she had a hard time drinking from a straw earlier. He has noticed some mild right facial drooping as well. The patient denies any vision changes, swallowing difficulties, numbness, tingling, weakness. The patient has been on Pradaxa for atrial fibrillation. However, the patient had a abnormal recent stress test that was done due to occasional dyspnea on exertion. The patient denies any current chest pain or shortness breath and she denies any recent chest pain on exertion. 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 Neurology was contacted from the ED and recommended full dose aspirin and he will consult. Discussed with patient and RN and ER and PA as well as family at bedside Review of Systems Constitutional: COMPLAINS OF: Fatigue, DENIES: Diaphoretic episodes, Fever, Weight gain, Weight loss, Chills, Dizziness, Change in appetite Endocrine: DENIES: Abnorml menstrual pattern, Heat/cold intolerance, Polydipsia Eyes: DENIES: Blurred vision, Diplopia, Eye inflammation, Eye pain, Vision loss Ears, nose, mouth, throat: DENIES: Tinnitus, Hearing loss, Vertigo, Nasal discharge, Odynophagia Respiratory: DENIES: Apneas, Cough, Snoring, Wheezing, Hemoptysis Cardiovascular: DENIES: Chest pain, Palpitations, Syncope, Dyspnea on Exertion , PND Gastrointestinal: DENIES: Abdominal pain, Black stools, Bloody stools, Constipation Genitourinary: DENIES: Abnormal vaginal bleeding, Dysmenorrhea, Dyspareunia, Sexual dysfunction Musculoskeletal: DENIES: Joint pain, Muscle aches, Stiffness, Joint Swelling Integumentary: DENIES: Abnormal pigmentation, Pruritus, Rash, Nail changes Hematologic/lymphatic: DENIES: Bruising Immunologic/allergic: DENIES: Eczema, Urticaria Neurologic: COMPLAINS OF: Speech Problems, Poor Balance, DENIES: Headache Psychiatric: COMPLAINS OF: Agitation, DENIES: Anxiety, Confusion, Mood changes , Depression, Hallucinations, Suicidal Ideation, Homicidal Ideation Except as stated in HPI: all other systems reviewed are Neg Past Family Social History Past Medical History Atrial fibrillation normally anticoagulated with Pradaxa Coronary artery disease CHF Hypothyroidism Hyperlipidemia Diabetes mellitus GERD History of PE in the past Past Surgical History Bilateral cataract surgery Retina tear repair Cardiac catheterization with stent placement Bladder stimulator placement-cannot have MRIs Bilateral carpal tunnel repair Hemorrhoidectomy Hysterectomy Reported Medications Reported Meds & Active Scripts Active Reported Vision Vitamins (Beta-Carotene(A)-Vits C,E/Mins) 1 Each Tablet 1,000 Unit PO DAILY Metformin (Metformin HCl) 500 Mg Tab 500 Mg PO BIDPC With meals Simvastatin 20 Mg Tab 20 Mg PO DAILY Pradaxa (Dabigatran) 150 Mg Cap 150 Mg PO BID Ocuvite (Multiple Vitamins W/ Minerals) 1 Tab 1 Tab PO DAILY Nexium (Esomeprazole DR) 40 Mg Capdr 40 Mg PO DAILY Metoprolol Tartrate 50 Mg Tab 50 Mg PO BID Potassium Chloride ER (Potassium Chloride) 20 Meq Tab 20 Meq PO DAILY Lyrica (Pregabalin) 100 Mg Cap 100 Mg PO TID Levothyroxine (Levothyroxine Sodium) 75 Mcg Tab 75 Mcg PO DAILY Fenofibrate 50 Mg Cap 160 Mg PO DAILY Diltiazem ER 24 HR 300 Mg Liz 300 Mg PO DAILY Cymbalta DR (Duloxetine HCl) 60 Mg Capdr 60 Mg PO DAILY Bumetanide 1 Mg Tab 1 Mg PO DAILY Reported Vision Vitamins (Beta-Carotene(A)-Vits C,E/Mins) 1 Each Tablet 1,000 Unit PO DAILY Metformin (Metformin HCl) 500 Mg Tab 500 Mg PO BIDPC With meals Simvastatin 20 Mg Tab 20 Mg PO DAILY Pradaxa (Dabigatran) 150 Mg Cap 150 Mg PO BID Ocuvite (Multiple Vitamins W/ Minerals) 1 Tab 1 Tab PO DAILY Nexium (Esomeprazole DR) 40 Mg Capdr 40 Mg PO DAILY Metoprolol Tartrate 50 Mg Tab 50 Mg PO BID Potassium Chloride ER (Potassium Chloride) 20 Meq Tab 20 Meq PO DAILY Lyrica (Pregabalin) 100 Mg Cap 100 Mg PO TID Levothyroxine (Levothyroxine Sodium) 75 Mcg Tab 75 Mcg PO DAILY Fenofibrate 50 Mg Cap 160 Mg PO DAILY Diltiazem ER 24 HR 300 Mg Liz 300 Mg PO DAILY Cymbalta DR (Duloxetine HCl) 60 Mg Capdr 60 Mg PO DAILY Bumetanide 1 Mg Tab 1 Mg PO DAILY Allergies: Coded Allergies: carisoprodol (Unverified Allergy, Severe, Hives, 07/23/17) nifedipine (Unverified Allergy, Severe, Respiratory Failure, 07/23/17) pentazocine (Unverified Allergy, Severe, Dizziness, 07/23/17) tetanus toxoid, adsorbed (Unverified Allergy, Severe, Swelling, 07/23/17) adhesive (Unverified Allergy, Intermediate, 07/23/17) Active Ordered Medications Current Medications Sodium Chloride (NS Flush) 2 ml UNSCH PRN IVF FLUSH AFTER USING IV ACCESS; Start 07/23/17 at 15:15; Stop 07/23/17 at 17:02; Status DC Sodium Chloride 500 ml @ 500 mls/hr BOLUS ONCE IV Last administered on t 15:22; Start 07/23/17 at 15:15; Stop 07/23/17 at 16:14; Status DC Aspirin (Aspirin) 325 mg ONCE ONCE PO Last administered on 07/23/17 17:59; Start 07/23/17 at 16:30; Stop 07/23/17 at 16:31; Status DC Duloxetine HCl (Cymbalta Dr) 60 mg DAILY PO ; Start 07/24/17 at 09:00 Levothyroxine Sodium (Synthroid) 75 mcg DAILY@0600 PO ; Start 07/24/17 at 06:00 Pregabalin (Lyrica) 100 mg TID PO Last administered on 07/23/17t 18:00; Start 07/23/17 at 18:00 Pantoprazole Sodium (Protonix) 40 mg DAILY PO ; Start 07/24/17 at 09:00 Fenofibrate (Tricor) 145 mg DAILY PO ; Start 07/24/17 at 09:00 Pravastatin Sodium (Pravachol) 40 mg DAILY PO ; Start 07/24/17 at 09:00 IV Flush (NS Flush) 2 ml BID IV FLUSH ; Start 07/23/17 at 21:00 IV Flush (NS Flush) 2 ml UNSCH PRN IV FLUSH FLUSH AFTER USING IV ACCESS; Start 07/23/17 at 17:00 Insulin Aspart (NovoLOG SUPPLEMENTAL SCALE) 1 ACHS SQ ; Start 07/23/17 at 17:00 Dextrose (D50w (Vial) Inj) 50 ml UNSCH PRN IV PUSH HYPOGLYCEMIA-SEE COMMENTS; Start 07/23/17 at 17:00 Glucagon (Glucagon Inj) 1 mg UNSCH PRN OTHER HYPOGLYCEMIA-SEE COMMENTS; Start 07/23/17 at 17:00 Sodium Chloride 1,000 ml @ 70 mls/hr [id number] IV ; Start 07/23/17 at 17:30 Reported Meds & Active Scripts Active Reported Vision Vitamins (Beta-Carotene(A)-Vits C,E/Mins) 1 Each Tablet 1,000 Unit PO DAILY Metformin (Metformin HCl) 500 Mg Tab 500 Mg PO BIDPC With meals Simvastatin 20 Mg Tab 20 Mg PO DAILY Pradaxa (Dabigatran) 150 Mg Cap 150 Mg PO BID Ocuvite (Multiple Vitamins W/ Minerals) 1 Tab 1 Tab PO DAILY Nexium (Esomeprazole DR) 40 Mg Capdr 40 Mg PO DAILY Metoprolol Tartrate 50 Mg Tab 50 Mg PO BID Potassium Chloride ER (Potassium Chloride) 20 Meq Tab 20 Meq PO DAILY Lyrica (Pregabalin) 100 Mg Cap 100 Mg PO TID Levothyroxine (Levothyroxine Sodium) 75 Mcg Tab 75 Mcg PO DAILY Fenofibrate 50 Mg Cap 160 Mg PO DAILY Diltiazem ER 24 HR 300 Mg Liz 300 Mg PO DAILY Cymbalta DR (Duloxetine HCl) 60 Mg Capdr 60 Mg PO DAILY Bumetanide 1 Mg Tab 1 Mg PO DAILY Current Medications Medications (Trade) Dose Ordered Sig/Jacklyn Route Start Time Stop Time Status Last Admin (NS Flush) 2 ml UNSCH PRN IVF 07/23/17 15:15 (Cymbalta Dr) 60 mg DAILY PO 07/24/17 09:00 UNV (Synthroid) 75 mcg DAILY PO 07/24/17 09:00 UNV (Lyrica) 100 mg TID PO 07/23/17 18:00 UNV Non-Formulary Medication 40 mg DAILY PO 07/24/17 09:00 UNV Non-Formulary Medication 160 mg DAILY PO 07/24/17 09:00 UNV Non-Formulary Medication 20 mg DAILY PO 07/24/17 09:00 UNV (NS Flush) 2 ml BID IV FLUSH 07/23/17 21:00 UNV (NS Flush) 2 ml UNSCH PRN IV FLUSH 07/23/17 17:00 UNV (NovoLOG SUPPLEMENTAL SCALE) 1 ACHS SQ 07/23/17 17:00 UNV (D50w (Vial) Inj) 50 ml UNSCH PRN IV PUSH 07/23/17 17:00 UNV (Glucagon Inj) 1 mg UNSCH PRN OTHER 07/23/17 17:00 UNV Family History Mother had a stroke and diabetes Father had heart disease Social History Quit smoking more than 40 years ago Denies any alcohol or drug use Physical Exam Vital Signs Vital Signs Date Time Temp Pulse Resp B/P (MAP) Pulse Ox O2 Delivery O2 Flow Rate FiO2 07/23/17 14:38 98.4 72 17 121/76 (91) 93 Nasal Cannula 2.00 Physical Exam GENERAL: Well-developed well-nourished. In no acute distress. Having difficulty getting words out aphasic SKIN: Warm and dry. No lesions noted. HEENT: Normocephalic. Pupils equal and round. Extraocular muscles are grossly intact. Mucous membranes pink and moist. Some right sided facial droop Neck is supple there is no JVD no thyromegaly no carotid bruits CARDIOVASCULAR: Irregular rate and rhythm. No murmur appreciated. S1 and S2 no S3 or S4 no heave or thrill RESPIRATORY: No accessory muscle use. Clear to auscultation. Breath sounds equal bilaterally. GASTROINTESTINAL: Abdomen soft, non-tender, nondistended. Bowel sounds x4. Obese MUSCULOSKELETAL: No obvious deformities. No clubbing or cyanosis. No edema. NEUROLOGICAL: Awake and alert. Moves upper and lower extremities spontaneously. Slurred speech. Mild right facial drooping, no tongue deviation. Strength 5/ 5. Sensation grossly intact. Slight pronator drift on the right. Grossly normal finger to nose. Very aphasic PSYCHIATRIC: Appropriate mood and affect; insight and judgment normal. 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 Laboratory Laboratory Tests Test 07/23/17 15:25 White Blood Count 9.3 Red Blood Count 4.67 Hemoglobin 14.1 Hematocrit 42.0 Mean Corpuscular Volume 90.0 Mean Corpuscular Hemoglobin 30.3 Mean Corpuscular Hemoglobin Concent 33.6 Red Cell Distribution Width 14.9 Platelet Count 238 Mean Platelet Volume 10.2 Neutrophils (%) (Auto) 64.9 Lymphocytes (%) (Auto) 21.1 Monocytes (%) (Auto) 10.1 Eosinophils (%) (Auto) 2.8 Basophils (%) (Auto) 1.1 Neutrophils # (Auto) 6.1 Lymphocytes # (Auto) 2.0 Monocytes # (Auto) 0.9 Eosinophils # (Auto) 0.3 Basophils # (Auto) 0.1 CBC Comment DIFF FINAL Differential Comment Prothrombin Time 12.1 Prothromb Time International Ratio 1.1 Blood Urea Nitrogen 20 Creatinine 1.02 Random Glucose 106 Calcium Level 9.3 Sodium Level 142 Potassium Level 3.7 Chloride Level 106 Carbon Dioxide Level 28.3 Anion Gap 8 Estimat Glomerular Filtration Rate 53 Total Creatine Kinase 65 Troponin I LESS THAN 0.02 Result Diagram: 07/23/17 1525 07/23/17 1525 Imaging Last Impressions Head CT 07/23/17 1510 Signed Impressions: Service Date/Time: Sunday, July 23, 2017 15:21 - CONCLUSION: 1. Left frontal ischemic infarct as above Mark Nam MD Chest X-Ray 07/23/17 151 Signed Impressions: Service Date/Time: Sunday, July 23, 2017 15:14 - CONCLUSION: 1. Cardiomegaly. Stable examination compared to previous. MD Abdoul Luzi VTE Risk Assessment Caprini VTE Risk Assessment: Mod/High Risk (score >= 2) Caprini Risk Assessment Model Point Value = 1 Point Value = 2 Point Value = 3 Point Value = 5 Age 41-60 Minor surgery BMI > 25 kg/m2 Swollen legs Varicose veins or History of unexplained or recurrent spontaneous Oral contraceptives or hormone replacement Sepsis (< 1 month) Serious lung disease, including pneumonia (< 1 month) Abnormal pulmonary function Acute myocardial infarction Congestive heart failure (< 1 month) History of inflammatory bowel disease Medical patient at bed rest Age 61-74 Arthroscopic surgery Major open surgery (> 45 min) Laparoscopic surgery (> 45 min) Malignancy Confined to bed (> 72 hours) Immobilizing plaster cast Central venous access Age >= 75 History of VTE Family history of VTE Factor V Leiden Prothrombin [id number] Lupus anticoagulant Anticardiolipin antibodies Elevated serum homocysteine Heparin-induced thrombocytopenia Other congenital or acquired thrombophilia Stroke (< 1 month) Elective arthroplasty Hip, pelvis, or leg fracture Acute spinal cord injury (< 1 month) Prophylaxis Regimen Total Risk Factor Score Risk Level Prophylaxis Regimen 0-1 Low Early ambulation 2 Moderate Order ONE of the following: *Sequential Compression Device (SCD) *Heparin 5000 units SQ BID 3-4 Higher Order ONE of the following medications: *Heparin 5000 units SQ TID *Enoxaparin/Lovenox 40 mg SQ daily (WT < 150 kg, CrCl > 30 mL/min) *Enoxaparin/Lovenox 30 mg SQ daily (WT < 150 kg, CrCl > 10-29 mL/min) *Enoxaparin/Lovenox 30 mg SQ BID (WT < 150 kg, CrCl > 30 mL/min) AND/OR *Sequential Compression Device (SCD) 5 or more Highest Order ONE of the following medications: *Heparin 5000 units SQ TID (Preferred with Epidurals) *Enoxaparin/Lovenox 40 mg SQ daily (WT < 150 kg, CrCl > 30 mL/min) *Enoxaparin/Lovenox 30 mg SQ daily (WT < 150 kg, CrCl > 10-29 mL/min) *Enoxaparin/Lovenox 30 mg SQ BID (WT < 150 kg, CrCl > 30 mL/min) AND *Sequential Compression Device (SCD) Assessment and Plan Problem List: (1) CVA (cerebral vascular accident) ICD Code: I63.9 - Cerebral infarction, unspecified Status: Acute (2) GERD (gastroesophageal reflux disease) ICD Code: K21.9 - Gastro-esophageal reflux disease without esophagitis Status: Chronic (3) Hypothyroidism ICD Code: E03.9 - Hypothyroidism, unspecified Status: Acute (4) Coronary artery disease ICD Code: I25.10 - Atherosclerotic heart disease of [place] coronary artery without angina pectoris Status: Chronic (5) Type 2 diabetes mellitus ICD Code: E11.9 - Type 2 diabetes mellitus without complications Status: Chronic Assessment and Plan 72-year-old female with a past medical history of A. fib, CAD, CHF, HLD, GERD, DM who presented for slurred speech Acute left frontal ischemic stroke: Seen on review of head CT. Patient has been off Pradaxa due to upcoming cardiac cath. Neurology consulted and recommended full dose aspirin 1 in the ED. -Continue standard stroke protocol with stroke scale, head of bed flat, neuro checks, swallow eval, permissive hypertension -Cannot have brain MRI secondary to bladder stimulator -Check carotid ultrasound and echocardiogram -Consult neurology, stroke navigator, rehabilitation medicine -Received aspirin in the ED, further anticoagulation/antiplatelet per neurology -PT/OT/ST -Monitor on telemetry CAD: Recent dyspnea on exertion and reportedly abnormal stress test, although patient does report a history of CHF. Denies chest pain or shortness of breath currently. Initial troponin within normal limits. EKG shows A. fib with no definite ischemic changes. Could consider inpatient cardiology consult if indicated. 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 Elizabeth Kate Atrial fibrillation: Rate is currently controlled. Pradaxa has been on hold, resume when cleared by neurology. Metoprolol and diltiazem are on hold currently with permissive hypertension, may need to resume for rate control if needed. Reported history of CHF: Currently appears a bit dry. Gentle IVF to increase cerebral perfusion, monitor for overload. Mild CATHI: Creatinine 1.02, previously 0.76 on . Hold home Bumex for now. Follow-up BMP. Diabetes mellitus: Hold home metformin. Monitor Accu-Cheks. Cover with SSI if needed. Check hemoglobin A1c. Hyperlipidemia: Continue statin. Check lipid profile. We'll get physical therapy and occupational therapy and speech therapy to eval and treat will get echoes and carotid Doppler Cannot do an MRI due to the bladder stimulator Discussed with patient and RN and ER and family and PA DVT prophylaxis: SCDs Code Status Full code Discussed Condition With Patient with at bedside, Dr. Campos Attending Statement The exam, history, and the medical decision-making described in the above note were completed with the assistance of the mid-level provider. I reviewed and agree with the findings presented. I attest that I had a [id number] encounter with the patient on the same day, and personally performed and documented my assessment and findings in the medical record. 3 days is the estimated time the patient will need to remain in the hospital, assuming treatment plan goals are met and no additional complications. The services are ordered in accordance with Medicare regulations or non- Medicare payer requirements, as applicable. In the case of services not specified as inpatient-only, they are appropriately provided as inpatient services in accordance with the 2-midnight benchmark. Problem Qualifiers (1) CVA (cerebral vascular accident): Qualified Codes: I63.10 - Cerebral infarction due to embolism of unspecified precerebral artery Chu Naranjo Jul 23, 2017 17:13 Pablo Campos DO Jul 23, 2017 18:28
--- NOTE | 2017-07-23 17:29 | RADRPT ---
EXAM DATE/TIME: 07/23/2017 17:01 [facility] COMPARISON: No previous studies available for comparison. INDICATIONS : Cerebrovascular accident. MEDICAL HISTORY : Gastroesophageal reflux disease. Congestive heart failure. Hypercholesterolemia. Thyroid disease. Karla b. Hypertension. Diabetes. Arthritis. SURGICAL HISTORY : Hysterectomy. Hemorrhoidectomy. Coronary artery stent. Bilateral cataract removal. Bilateral carpal t unnel surgery. Bladder stimulator implant. Right retina surgery. ENCOUNTER: Initial ACUITY: 1 day PAIN SCORE: 0/10 LOCATION: Bilateral neck PEAK SYSTOLIC VELOCITIES (cm/sec): ICA/CCA RATIO: Right: 1.1 Left: 1.9 ICA: Right: 49 Left: 92 CCA: Right: 46 Left: 48 ECA: Right: 51 Left: 75 VERTEBRAL: Right: 26 antegrade Left: 27 antegrade Elevated flow velocities and ICA/CCA ratios have been found to correlate with increased degrees of vessel stenosis, calculated as percentage of diameter relative to a normal segment of distal ICA/CCA FINDINGS: RIGHT CAROTID: No significant stenosis is visualized. The waveforms are within normal limits. LEFT CAROTID: No significant stenosis is visualized. The waveforms are within normal limits. VERTEBRAL ARTERIES: Antegrade flow is seen in both vertebral arteries. MISCELLANEOUS: None. CONCLUSION: 1. No evidence for hemodynamically significant stenosis. 2. Antegrade flow in the bilateral vertebral arteries. Kyle Rios MD on July 23, 2017 at 17:27 Board Certified Radiologist. This report was verified electronically.
[2017-07-23] MEDS ORDERED: SODIUM CHLOR 0.9% 1000 ML INJ 1,000 ML IV SCH (17:30)
[2017-07-23] MEDS: PREGABALIN 100 MG CAP PO SCH (18:00)
[2017-07-23 18:02] LABS: BLOOD, URINE NEG (NEG); GLUCOSE,URINE NEG (NEG); KETONE, URINE NEG (NEG); NITRITE,URINE NEG (NEG); PH, URINE 6.5 (5.0-8.5); URINE COLOR YELLOW (YELLW/STRAW)
[2017-07-23 18:03] LABS: COMMENT (UR) CATH-CULT NOT IND; CULTURE IF INDICATED CATH CULTURE NOT IND
[2017-07-23 18:08] VITALS: BP 122/64; PULSE 69; RESP 20; O2SAT 99
[2017-07-23 18:51] VITALS: BP 127/71; PULSE 68; RESP 20; TEMP 97.7; O2SAT 100
[2017-07-23 20:00] VITALS: BP 149/72; PULSE 71; RESP 18; TEMP 97.3; O2SAT 97
[2017-07-23] MEDS ORDERED: SODIUM CHLORIDE 0.9% FLUSH 5 ML FLUSH IV FLUSH SCH (21:00)
[2017-07-23] MEDS: METOPROLOL TARTRATE 50 MG TAB PO SCH (21:09)
[2017-07-23] MEDS: SODIUM CHLOR 0.9% 1000 ML INJ 1,000 ML IV SCH (23:36)
[2017-07-24] VITALS (8 sets, daily range): BP systolic 113–139; BP diastolic 65–80; PULSE 65–73; RESP 16–18; TEMP 97.3–98.6; O2SAT 95–98
[2017-07-24] MEDS: LEVOTHYROXINE SODIUM 75 MCG TAB PO SCH (06:36)
--- NOTE | 2017-07-24 07:38 | MB ---
cc: WARNER PERES M.D. DATE OF CONSULTATION 07/23/2017 REASON FOR CONSULTATION Stroke HISTORY OF PRESENT ILLNESS This is a pleasant 72-year-old right-handed white female who was in her usual state of good health yesterday evening when she woke up this morning, felt somewhat fatigued and weak. Her spoke to her around 1 o'clock in the afternoon and noted definitely that she had slurred speech. She came to the hospital later in the afternoon. It was noted that she had a right facial droop and difficulty with speaking. Apparently felt that she woke up with these symptoms. PAST MEDICAL HISTORY 1. Coronary artery disease 2. Atrial fibrillation 3. Hyperlipidemia 4. Gastroesophageal reflux disease 5. Diabetes 6. Congestive heart failure 7. History of PE in the past. 8. Cataract surgery 9. Retinal tear repair 10. Cardiac stent placement 11. Bladder stimulator in place 12. Bilateral carpal tunnel surgery 13. Hemorrhoidectomy 14. Hysterectomy MEDICATIONS er medicines at home: 1. Metformin 2. Simvastatin 3. Ocuvite 4. Nexium 5. Metoprolol 6. Potassium chloride 7. Lyrica 8. Levofloxacin 9. Fenofibrate 10. Diltiazem 11. Cymbalta 12. Bumetanide 13. Pradaxa. Of note, the Pradaxa has been on hold for the past week in anticipation of a dental procedure. NEUROLOGIC EXAMINATION Blood pressure 127/71, pulse 68, respiratory rate is 20, temperature 97 degrees. Higher cortical function, the patient is alert. She follows commands. She has a mild expressive aphasia, has difficulty expressing words and difficulty repeating simple phrases. On cranial nerve examination, there is some mild right upper motor neuron VII palsy. Other cranial nerves are normal. On motor exam, she has 5/5 strength of all groups in both upper and lower extremities. There is no drift. Fine motor, normal. Sensory exam normal. Reflexes are 2+ and symmetric. CT of the brain shows an area of low attenuation in the left frontal area. No hemorrhage is present. Carotid ultrasound, no significant stenosis is identified. LABORATORY DATA The white count is 9300, hemoglobin 14, hematocrit 42%, platelet count 238,000. Sodium is 142, potassium 3.7, chloride 106, CO2 28.3, BUN is 20, creatinine 1.02, GFR 53, glucose 106, CPK 65, PT 12.1, INR 1.1. IMPRESSION Acute left hemisphere stroke. The patient is not a candidate for IV TPA or intervention due to the timing well out of the therapeutic window. RECOMMENDATIONS Would not start anticoagulation at the present time due to the risk of conversion of the stroke to a hemorrhagic stroke and would start aspirin 325 mg daily. Recommend repeating CT of the brain and consider anticoagulation on Sunday when the risk of hemorrhage would be much lower. We will also obtain an echocardiogram as well as lipid panel. MD ROLANDO Mar/SHERYL /11:32 PM /7:23 AM
[2017-07-24] MEDS: INSULIN ASPART SUPPLEMENTAL SCALE SQ SCH ×4 (08:00→21:28)
[2017-07-24] MEDS ORDERED: BETA CAROTENE VITS C E PO SCH (09:00)
[2017-07-24] MEDS ORDERED: MINS PO SCH (09:00)
[2017-07-24 09:01] LABS: AUTOMATED NEUTROPHIL # 4.4 TH/MM3 (1.8-7.7); BASOPHIL # 0.1 TH/MM3 (0-0.2); BASOPHIL % 1.4 % (0.0-2.0); EOSINOPHIL # 0.3 TH/MM3 (0-0.4); EOSINOPHIL % 4.8 % (0.0-4.0); HEMATOCRIT 41.2 % (35.0-46.0); HEMO FLAGS DIFF FINAL; LYMPH % 21.5 % (9.0-44.0); LYMPHOCYTE # 1.5 TH/MM3 (1.0-4.8); MEAN CELL VOLUME 90.5 FL (80.0-100.0); MEAN CORPUSCULAR HGB CONC 34.2 % (32.0-36.0); MONO % 10.4 % (0.0-8.0); NEUT % 61.9 % (16.0-70.0); PLATELET COUNT 191 TH/MM3 (150-450); RED BLOOD COUNT 4.55 MIL/MM3 (4.00-5.30); RED CELL DISTRIBUTION WIDTH 15.1 % (11.6-17.2); WHITE BLOOD COUNT 7.2 TH/MM3 (4.0-11.0)
[2017-07-24] MEDS: MULTIVITAMIN-OPHTHALMIC 1 TAB PO SCH (09:15)
[2017-07-24] MEDS: PREGABALIN 100 MG CAP PO SCH ×3 (09:16→17:17)
[2017-07-24] MEDS: FENOFIBRATE 145 MG TAB PO SCH (09:16)
[2017-07-24] MEDS: METOPROLOL TARTRATE 50 MG TAB PO SCH ×2 (09:16→21:13)
[2017-07-24] MEDS: DULoxetine HCl DR 60 MG CAP PO SCH (09:16)
[2017-07-24] MEDS: PRAVASTATIN SOD 40 MG TAB PO SCH (09:16)
[2017-07-24] MEDS: PANTOPRAZOLE SOD 40 MG DELAYED RELEASE TAB PO SCH (09:16)
[2017-07-24] MEDS: DILTIAZEM-CD 300 MG CAP ER PO SCH (09:16)
[2017-07-24] MEDS: SODIUM CHLORIDE 0.9% FLUSH 5 ML FLUSH IV FLUSH SCH ×2 (09:17→21:13)
[2017-07-24 09:35] LABS: ALT (GPT) 16 U/L (10-53); ANION GAP 8 MEQ/L (5-15); AST (GOT) 23 U/L (15-37); BLOOD UREA NITROGEN 13 MG/DL (7-18); CHLORIDE 109 MEQ/L (98-107); GLOMERULAR FILTRATION RATE 83 ML/MIN (>89); MAGNESIUM 1.8 MG/DL (1.5-2.5); POTASSIUM 3.6 MEQ/L (3.5-5.1); SODIUM (NA) 141 MEQ/L (136-145)
[2017-07-24 09:58] LABS: ALKALINE PHOSPHATASE 65 U/L (45-117); FREE T4 1.16 NG/DL (0.76-1.46); HDL CHOLESTEROL 22.2 MG/DL (40.0-60.0); LDL CHOLESTEROL 50 MG/DL (0-99); TOTAL BILIRUBIN ADULT 0.6 MG/DL (0.2-1.0)
[2017-07-24 10:43] LABS: HEMOGLOBIN A1a 1.1 %; HEMOGLOBIN A1b 2.1 %; HEMOGLOBIN Ao 83.5 %; HEMOGLOBIN LA1C 2.1 %; HEMOGLOBIN P3 5.5 %
[2017-07-24 11:26] LABS: HEMOGLOBIN A1a 1.1 %; HEMOGLOBIN A1b 2.1 %; HEMOGLOBIN Ao 83.6 %; HEMOGLOBIN LA1C 2.3 %; HEMOGLOBIN P3 4.1 %
--- NOTE | 2017-07-24 12:16 | EKG ---
Date Performed: 07/23/2017 Time Performed: 14:53:58 PTAGE: 72 years EKG: Atrial fibrillation with controlled ventricular rate Nonspecific ST-T wave changes ABNORMAL ECG PREVIOUS TRACING : 12/05/2016 18.09 Compared to prior tracing no significant change DOCTOR: Jerrod Scales Interpretating Date/Time 07/24/2017 12:14:36
[2017-07-24] MEDS: SODIUM CHLOR 0.9% 1000 ML INJ 1,000 ML IV SCH (13:54)
--- NOTE | 2017-07-24 14:10 | HHI.PR ---
Subjective Remarks seen with at bedside expressive aphasia, she denies any ehadaches, nausea or vomiting or difficulty swallowing or any weakness baseline ambulatory, right handed Objective Vitals Vital Signs Date Time Temp Pulse Resp B/P (MAP) Pulse Ox O2 Delivery O2 Flow Rate FiO2 07/24/17 12:16 97.3 67 17 139/76 (97) 98 07/24/17 11:34 69 07/24/17 11:17 95 Nasal Cannula 2.00 07/24/17 08:25 97.5 73 16 127/76 (93) 96 07/24/17 04:45 97.8 67 16 126/80 (95) 97 07/24/17 02:05 65 07/24/17 00:00 98.2 66 18 129/80 (96) 96 07/23/17 20:00 97.3 71 18 149/72 (97) 97 07/23/17 18:51 97.7 68 20 127/71 (89) 100 07/23/17 18:16 07/23/17 18:08 69 20 122/64 (83) 99 Nasal Cannula 2.00 07/23/17 14:38 98.4 72 17 121/76 (91) 93 Nasal Cannula 2.00 I/O 07/23/17 07/23/17 07/23/17 07/24/17 07/24/17 07/24/17 07:00 15:00 23:00 07:00 15:00 23:00 # Voids 1 4 Result Diagram: 07/24/17 0850 07/24/17 0850 Imaging Last Impressions Head CT 07/23/17 1510 Signed Impressions: Service Date/Time: Sunday, July 23, 2017 15:21 - CONCLUSION: 1. Left frontal ischemic infarct as above Mark Nam MD Chest X-Ray 07/23/17 1510 Signed Impressions: Service Date/Time: Sunday, July 23, 2017 15:14 - CONCLUSION: 1. Cardiomegaly. Stable examination compared to previous. Jose Giordano MD Carotid Artery Ultrasound 07/23/17 0000 Signed Impressions: Service Date/Time: Sunday, July 23, 2017 17:01 - CONCLUSION: 1. No evidence for hemodynamically significant stenosis. 2. Antegrade flow in the bilateral vertebral arteries. Kyle Rios MD Objective Remarks awake and alert, + expressive aphasia but patient tries- difficulty expressing anicteric no bruit lungs clear irregular rhythm, rate 60s abdomen soft extremities no edema moves all extrmeities equally. grossly no sensory deficits tongue midline, no facial asymmetry, pupils equally RTL, EOM full ROM A/P Problem List: (1) CVA (cerebral vascular accident) ICD Code: I63.9 - Cerebral infarction, unspecified Status: Acute (2) GERD (gastroesophageal reflux disease) ICD Code: K21.9 - Gastro-esophageal reflux disease without esophagitis Status: Chronic (3) Hypothyroidism ICD Code: E03.9 - Hypothyroidism, unspecified Status: Acute (4) Coronary artery disease ICD Code: I25.10 - Atherosclerotic heart disease of [place] coronary artery without angina pectoris Status: Chronic (5) Type 2 diabetes mellitus ICD Code: E11.9 - Type 2 diabetes mellitus without complications Status: Chronic Assessment and Plan 72-year-old female right handed female with a past medical history of A. fib, CAD, CHF, HLD, GERD, DM who presented for slurred speech Acute left frontal ischemic stroke: with expressive aphasia - Neurology ff, speech therapy ff, PT daily, OT consult -Continue standard stroke protocol with stroke scale, head of bed flat, neuro checks, swallow eval, permissive hypertension -Cannot have brain MRI secondary to bladder stimulator -carotid US negative. 2D echo being done at bedside -Monitor on telemetry - start Ecotrin per Neuro recommendation, Hold off on OAC to prevent hemorrhagic conversion for now- possible start On Sunday History of CAD: Recent dyspnea on exertion and reportedly abnormal stress test, although patient does report a history of CHF. Denies chest pain or shortness of breath currently. Initial troponin within normal limits. EKG shows A. fib with no definite ischemic changes. Could consider inpatient cardiology consult if indicated. 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 Elizabeth Kate on statins and Tricor Atrial fibrillation: Rate is currently controlled. Pradaxa has been on hold, resume when cleared by neurology. Metoprolol and diltiazem are on hold currently with permissive hypertension, - good readings may need to resume for rate control if needed. Echo ordered Reported history of CHF:- in remission Currently appears a bit dry. Gentle IVF to increase cerebral perfusion, monitor for overload. Echo pending Mild CATHI: Creatinine improved. Hold home Bumex for now. Follow-up BMP. decreased IVF rate to 40 cc/hr Diabetes mellitus: Hold home metformin. Monitor Accu-Cheks. Cover with SSI if needed. Check hemoglobin A1c.- pending Hyperlipidemia: Continue statin. History of hypothyroidism - continue on synthroid PT/OT/speechj eval Problem Qualifiers (1) CVA (cerebral vascular accident): Qualified Codes: I63.10 - Cerebral infarction due to embolism of unspecified precerebral artery Darren Turcios MD Jul 24, 2017 14:10
[2017-07-24] MEDS: ASPIRIN EC 325 MG TABEC PO SCH (17:18)
--- NOTE | 2017-07-24 17:18 | ECHRPT ---
Indication: CVA/TIA CONCLUSIONS The left ventricular systolic function is normal with an estimated ejection fraction in the range of 55-60%. Normal left ventricular size. Wall thickness is measured at the upper limits of normal. No regional wall motion abnormalities are present. The left atrial size is moderately dilated. Mitral annular calcification is present. Trace mitral valve regurgitation. Aortic valve sclerosis is present. Mild aortic valve regurgitation. There is trace tricuspid valve regurgitation. The estimated pulmonary arterial pressure is 36.8 mmHg. BP: 149 / 72 HR: 72 Rhythm: Atrial fibrillation MEASUREMENTS (Male / Female) Normal Values Technical Quality:Technically difficult study 2D ECHO LV Diastolic Diameter PLAX 4.5 cm 4.2 - 5.9 / 3.9 - 5.3 cm LV Systolic Diameter PLAX 3.2 cm IVS Diastolic Thickness 1.2 cm 0.6 - 1.0 / 0.6 - 0.9 cm LVPW Diastolic Thickness 1.2 cm 0.6 - 1.0 / 0.6 - 0.9 cm LV Relative Wall Thickness 0.5 RV Internal Dim ED PLAX 2.6 cm LVOT Diameter 1.9 cm LA Systolic Diameter LX 5.0 cm 3.0 - 4.0 / 2.7 - 3.8 cm LV Ejection Fraction MOD 4C 61.8 % LV Cardiac Index MOD 4C 985.8 cm/minm LV Ejection Fraction 4C AL 62.0 % LV Cardiac Index 4C AL 1028.7 cm/minm M-MODE Aortic Root Diameter MM 2.6 cm LA Systolic Diameter MM 5.2 cm LA Ao Ratio MM 2.0 AV Cusp Separation MM 1.9 cm DOPPLER AV Peak Velocity 149.0 cm/s AV Peak Gradient 8.9 mmHg AI Peak Velocity 351.0 cm/s AI Peak Gradient 49.3 mmHg AI Pressure Half Time 447.0 ms LVOT Peak Velocity 84.4 cm/s LVOT Peak Gradient 2.8 mmHg AV Area Cont Eq pk 1.6 cm MV Peak Velocity 141.0 cm/s MV Peak Gradient 8.0 mmHg MV Mean Velocity 73.0 cm/s MV Mean Gradient 3.0 mmHg MV Area PHT 4.8 cm TR Peak Velocity 259.0 cm/s TR Peak Gradient 26.8 mmHg Right Atrial Pressure 10.0 mmHg Pulmonary Artery Systolic Pressu 36.8 mmHg Right Ventricular Systolic Press 36.8 mmHg PV Peak Velocity 81.4 cm/s PV Peak Gradient 2.7 mmHg FINDINGS LEFT VENTRICLE The left ventricular systolic function is normal with an estimated ejection fraction in the range of 55-60%. Normal left ventricular size. Wall thickness is measured at the upper limits of normal. No regional wall motion abnormalities are present. RIGHT VENTRICLE Normal right ventricular size and systolic function. LEFT ATRIUM The left atrial size is moderately dilated. RIGHT ATRIUM The right atrial size is normal. ATRIAL SEPTUM Normal atrial septal thickness without atrial level shunting by limited color doppler interrogation. AORTA The aortic root and proximal ascending aorta are normal in size on limited imaging. MITRAL VALVE Mitral annular calcification is present. Trace mitral valve regurgitation. AORTIC VALVE Aortic valve sclerosis is present. Mild aortic valve regurgitation. TRICUSPID VALVE There is trace tricuspid valve regurgitation. The estimated pulmonary arterial pressure is 36.8 mmHg. PULMONARY VALVE No pulmonary valve regurgitation or stenosis. VESSELS The inferior vena cava is normal in size. PERICARDIUM No pericardial effusion. Ayaan Jasso MD, FACC (Electronically Signed) Final Date:24 July 2017 17:17
--- NOTE | 2017-07-24 21:23 | HHI.PR ---
Review/Management Diagnosis Left frontal CVA with expressive aphasia--improving afib. Plan Recheck CT brain tomorrow--if stable with no hemorrhage, resume pradaxa. Diagnosis/Plan: Subjective Subjective Comments No acute events reported speech improving--patient notes it is easier to get out some phrases. Active Medications Current Medications Medications (Trade) Dose Ordered Sig/Jacklyn Route Start Time Stop Time Status Last Admin (Cymbalta Dr) 60 mg DAILY PO 07/24/17 09:00 07/24/17 09:16 (Synthroid) 75 mcg DAILY@0600 PO 07/24/17 06:00 07/24/17 06:36 (Lyrica) 100 mg TID PO 07/23/17 18:00 07/24/17 17:17 (Protonix) 40 mg DAILY PO 07/24/17 09:00 07/24/17 09:16 (Tricor) 145 mg DAILY PO 07/24/17 09:00 07/24/17 09:16 (Pravachol) 40 mg DAILY PO 07/24/17 09:00 07/24/17 09:16 (Cardizem Cd) 300 mg DAILY PO 07/24/17 09:00 07/24/17 09:16 (Lopressor) 50 mg BID PO 07/23/17 21:00 07/24/17 21:13 (Ocuvite) 1 tab DAILY PO 07/24/17 09:00 07/24/17 09:15 (NS Flush) 2 ml BID IV FLUSH 07/24/17 09:00 07/24/17 21:13 (NS Flush) 2 ml UNSCH PRN IV FLUSH 07/23/17 23:45 Sodium Chloride 1,000 ml @ 40 mls/hr Q24H IV 07/23/17 23:36 (NovoLOG SUPPLEMENTAL SCALE) 1 ACHS SQ 07/24/17 08:00 07/24/17 13:01 (D50w (Vial) Inj) 50 ml UNSCH PRN IV PUSH 07/23/17 23:45 (Glucagon Inj) 1 mg UNSCH PRN OTHER 07/23/17 23:45 (Ecotrin Ec) 325 mg DAILY PO 07/24/17 14:30 07/24/17 17:18 Allergies Allergies Coded Allergies carisoprodol (Unverified Allergy, Severe, Hives, 07/23/17) nifedipine (Unverified Allergy, Severe, Respiratory Failure, 07/23/17) pentazocine (Unverified Allergy, Severe, Dizziness, 07/23/17) tetanus toxoid, adsorbed (Unverified Allergy, Severe, Swelling, 07/23/17) adhesive (Unverified Allergy, Intermediate, 07/23/17) Exam I&O / VS 07/24/17 07/24/17 07/25/17 15:00 23:00 07:00 Intake Total 747 ml 480 ml Balance 747 ml 480 ml Intake Oral 480 ml IV Total 747 ml # Voids 5 4 # Bowel Movements 1 Vital Signs Date Time Temp Pulse Resp B/P (MAP) Pulse Ox O2 Delivery O2 Flow Rate FiO2 07/24/17 16:02 98.6 69 18 113/65 (81) 97 07/24/17 12:16 97.3 67 17 139/76 (97) 98 07/24/17 11:34 69 07/24/17 11:17 95 Nasal Cannula 2.00 07/24/17 09:10 Nasal Cannula 2.00 07/24/17 08:25 97.5 73 16 127/76 (93) 96 07/24/17 04:45 97.8 67 16 126/80 (95) 97 07/24/17 02:05 65 07/24/17 00:00 98.2 66 18 129/80 (96) 96 Exam Comments alert, speech is more fluent today. comprehension is intact Cn intact MOTOR 5/5 BUE and BLE, no drift. Objective Micro and Labs Laboratory Tests Test 07/24/17 08:50 White Blood Count 7.2 Red Blood Count 4.55 Hemoglobin 14.1 Hematocrit 41.2 Mean Corpuscular Volume 90.5 Mean Corpuscular Hemoglobin 31.0 Mean Corpuscular Hemoglobin Concent 34.2 Red Cell Distribution Width 15.1 Platelet Count 191 Mean Platelet Volume 9.7 Neutrophils (%) (Auto) 61.9 Lymphocytes (%) (Auto) 21.5 Monocytes (%) (Auto) 10.4 Eosinophils (%) (Auto) 4.8 Basophils (%) (Auto) 1.4 Neutrophils # (Auto) 4.4 Lymphocytes # (Auto) 1.5 Monocytes # (Auto) 0.7 Eosinophils # (Auto) 0.3 Basophils # (Auto) 0.1 CBC Comment DIFF FINAL Differential Comment Blood Urea Nitrogen 13 Creatinine 0.69 Random Glucose 128 Total Protein 6.2 Albumin 3.2 Calcium Level 8.5 Phosphorus Level 2.1 Magnesium Level 1.8 Alkaline Phosphatase 65 Aspartate Amino Transf (AST/SGOT) 23 Alanine Aminotransferase (ALT/SGPT) 16 Total Bilirubin 0.6 Sodium Level 141 Potassium Level 3.6 Chloride Level 109 Carbon Dioxide Level 24.0 Anion Gap 8 Estimat Glomerular Filtration Rate 83 Hemoglobin A1c 6.4 Triglycerides Level 259 Cholesterol Level 124 LDL Cholesterol 50 HDL Cholesterol 22.2 Cholesterol/HDL Ratio 5.58 Free Thyroxine 1.16 Thyroid Stimulating Hormone 3rd Gen 3.380 Hao Ravi PhD Jul 24, 2017 21:23
[2017-07-25] VITALS (9 sets, daily range): BP systolic 108–141; BP diastolic 59–85; PULSE 60–72; RESP 17–20; TEMP 97.2–98.7; O2SAT 95–100
[2017-07-25] MEDS: LEVOTHYROXINE SODIUM 75 MCG TAB PO SCH (06:09)
--- NOTE | 2017-07-25 06:45 | HHI.PR ---
Review/Management Diagnosis Left frontal CVA with expressive aphasia--improving afib. Plan Recheck CT brain today--if stable with no hemorrhage, resume pradaxa. Diagnosis/Plan: Subjective Subjective Comments No acute events reported Active Medications Current Medications Medications (Trade) Dose Ordered Sig/Jacklyn Route Start Time Stop Time Status Last Admin (Cymbalta Dr) 60 mg DAILY PO 07/24/17 09:00 07/24/17 09:16 (Synthroid) 75 mcg DAILY@0600 PO 07/24/17 06:00 07/25/17 06:09 (Lyrica) 100 mg TID PO 07/23/17 18:00 07/24/17 17:17 (Protonix) 40 mg DAILY PO 07/24/17 09:00 07/24/17 09:16 (Tricor) 145 mg DAILY PO 07/24/17 09:00 07/24/17 09:16 (Pravachol) 40 mg DAILY PO 07/24/17 09:00 07/24/17 09:16 (Cardizem Cd) 300 mg DAILY PO 07/24/17 09:00 07/24/17 09:16 (Lopressor) 50 mg BID PO 07/23/17 21:00 07/24/17 21:13 (Ocuvite) 1 tab DAILY PO 07/24/17 09:00 07/24/17 09:15 (NS Flush) 2 ml BID IV FLUSH 07/24/17 09:00 07/24/17 21:13 (NS Flush) 2 ml UNSCH PRN IV FLUSH 07/23/17 23:45 Sodium Chloride 1,000 ml @ 40 mls/hr Q24H IV 07/23/17 23:36 (NovoLOG SUPPLEMENTAL SCALE) 1 ACHS SQ 07/24/17 08:00 07/24/17 21:28 (D50w (Vial) Inj) 50 ml UNSCH PRN IV PUSH 07/23/17 23:45 (Glucagon Inj) 1 mg UNSCH PRN OTHER 07/23/17 23:45 (Ecotrin Ec) 325 mg DAILY PO 07/24/17 14:30 07/24/17 17:18 Allergies Allergies Coded Allergies carisoprodol (Unverified Allergy, Severe, Hives, 07/23/17) nifedipine (Unverified Allergy, Severe, Respiratory Failure, 07/23/17) pentazocine (Unverified Allergy, Severe, Dizziness, 07/23/17) tetanus toxoid, adsorbed (Unverified Allergy, Severe, Swelling, 07/23/17) adhesive (Unverified Allergy, Intermediate, 07/23/17) Exam I&O / VS Vital Signs Date Time Temp Pulse Resp B/P (MAP) Pulse Ox O2 Delivery O2 Flow Rate FiO2 07/25/17 05:34 98.0 67 18 141/73 (95) 95 07/25/17 00:52 97.2 69 17 139/77 (97) 98 07/24/17 21:28 Nasal Cannula 2.00 07/24/17 20:00 Room Air 07/24/17 16:02 98.6 69 18 113/65 (81) 97 07/24/17 12:16 97.3 67 17 139/76 (97) 98 07/24/17 11:34 69 07/24/17 11:17 95 Nasal Cannula 2.00 07/24/17 09:10 Nasal Cannula 2.00 07/24/17 08:25 97.5 73 16 127/76 (93) 96 Exam Comments alert, speech is fluent and able to repeat simple phrases. comprehension is intact Cn intact MOTOR 5/5 BUE and BLE, no drift. Objective Micro and Labs Laboratory Tests Test 07/24/17 08:50 White Blood Count 7.2 Red Blood Count 4.55 Hemoglobin 14.1 Hematocrit 41.2 Mean Corpuscular Volume 90.5 Mean Corpuscular Hemoglobin 31.0 Mean Corpuscular Hemoglobin Concent 34.2 Red Cell Distribution Width 15.1 Platelet Count 191 Mean Platelet Volume 9.7 Neutrophils (%) (Auto) 61.9 Lymphocytes (%) (Auto) 21.5 Monocytes (%) (Auto) 10.4 Eosinophils (%) (Auto) 4.8 Basophils (%) (Auto) 1.4 Neutrophils # (Auto) 4.4 Lymphocytes # (Auto) 1.5 Monocytes # (Auto) 0.7 Eosinophils # (Auto) 0.3 Basophils # (Auto) 0.1 CBC Comment DIFF FINAL Differential Comment Blood Urea Nitrogen 13 Creatinine 0.69 Random Glucose 128 Total Protein 6.2 Albumin 3.2 Calcium Level 8.5 Phosphorus Level 2.1 Magnesium Level 1.8 Alkaline Phosphatase 65 Aspartate Amino Transf (AST/SGOT) 23 Alanine Aminotransferase (ALT/SGPT) 16 Total Bilirubin 0.6 Sodium Level 141 Potassium Level 3.6 Chloride Level 109 Carbon Dioxide Level 24.0 Anion Gap 8 Estimat Glomerular Filtration Rate 83 Hemoglobin A1c 6.4 Triglycerides Level 259 Cholesterol Level 124 LDL Cholesterol 50 HDL Cholesterol 22.2 Cholesterol/HDL Ratio 5.58 Free Thyroxine 1.16 Thyroid Stimulating Hormone 3rd Gen 3.380 Hao Ravi PhD Jul 25, 2017 06:45
[2017-07-25] MEDS: INSULIN ASPART SUPPLEMENTAL SCALE SQ SCH ×4 (08:00→21:00)
--- NOTE | 2017-07-25 09:26 | RADRPT ---
EXAM DATE/TIME: 07/25/2017 08:47 [facility] COMPARISON: CT BRAIN W/O CONTRAST, July 23, 2017, 15:21. INDICATIONS : Stroke. RADIATION DOSE: 56.35 CTDIvol (mGy) MEDICAL HISTORY : Stroke. Cardiovascular disease Hypertension. SURGICAL HISTORY : Hysterectomy. ENCOUNTER: Subsequent ACUITY: 3 days PAIN SCALE: 0/10 LOCATION: cranial TECHNIQUE: Multiple contiguous axial images were obtained of the head. Using automated exposure control and adj ustment of the mA and/or kV according to patient size, radiation dose was kept as low as reasonably a chievable to obtain optimal diagnostic quality images. DICOM format image data is available electro nically for review and comparison. FINDINGS: CEREBRUM: Evolving infarct left frontal region with localized edema without hemorrhage. The right hemisphere i s unremarkable There is no extra-axial fluid. POSTERIOR FOSSA: The cerebellum and brainstem are intact. The 4th ventricle is midline. The cerebellopontine angle i s unremarkable. Moderate vertebral artery calcifications are noted much worse on the right than the left. EXTRACRANIAL: The visualized portion of the orbits is intact. SKULL: The calvaria is intact. No evidence of skull fracture. CONCLUSION: Evolving left frontal infarct with localized edema without hemorrhage. Pablo Giordano MD FACR on July 25, 2017 at 9:21 Board Certified Radiologist. This report was verified electronically.
--- NOTE | 2017-07-25 09:35 | HHI.PR ---
Subjective Remarks up and ambulating with PT with a walker her speech is markedly improved- fluent and more spontaneous - almost baseline no difficulty swallowing Objective Vitals Vital Signs Date Time Temp Pulse Resp B/P (MAP) Pulse Ox O2 Delivery O2 Flow Rate FiO2 07/25/17 08:52 98.3 68 19 135/85 (102) 98 07/25/17 05:34 98.0 67 18 141/73 (95) 95 07/25/17 00:52 97.2 69 17 139/77 (97) 98 07/24/17 21:28 Nasal Cannula 2.00 07/24/17 20:00 Room Air 07/24/17 16:02 98.6 69 18 113/65 (81) 97 07/24/17 12:16 97.3 67 17 139/76 (97) 98 07/24/17 11:34 69 07/24/17 11:17 95 Nasal Cannula 2.00 I/O 07/24/17 07/24/17 07/24/17 07/25/17 07/25/17 07/25/17 07:00 15:00 23:00 07:00 15:00 23:00 Intake Total 747 ml 480 ml 240 ml Balance 747 ml 480 ml 240 ml Intake Oral 480 ml 240 ml IV Total 747 ml # Voids 5 4 4 # Bowel Movements 1 Result Diagram: 07/24/17 0850 07/24/17 0850 Imaging Last Impressions Head CT 07/23/17 1510 Signed Impressions: Service Date/Time: Sunday, July 23, 2017 15:21 - CONCLUSION: 1. Left frontal ischemic infarct as above Mark Nam MD Chest X-Ray 07/23/17 1510 Signed Impressions: Service Date/Time: Sunday, July 23, 2017 15:14 - CONCLUSION: 1. Cardiomegaly. Stable examination compared to previous. Jose Giordano MD Carotid Artery Ultrasound 07/23/17 0000 Signed Impressions: Service Date/Time: Sunday, July 23, 2017 17:01 - CONCLUSION: 1. No evidence for hemodynamically significant stenosis. 2. Antegrade flow in the bilateral vertebral arteries. Kyle Rios MD Objective Remarks awake and alert, + speech clear, and spontaenous, oriented x 3 anicteric no bruit lungs clear irregular rhythm, abdomen soft extremities no edema moves all extremeties equally. grossly no sensory deficits, gait- steady- with a walker tongue midline, no facial asymmetry, pupils equally RTL, EOM full ROM A/P Problem List: (1) CVA (cerebral vascular accident) ICD Code: I63.9 - Cerebral infarction, unspecified Status: Acute (2) GERD (gastroesophageal reflux disease) ICD Code: K21.9 - Gastro-esophageal reflux disease without esophagitis Status: Chronic (3) Hypothyroidism ICD Code: E03.9 - Hypothyroidism, unspecified Status: Acute (4) Coronary artery disease ICD Code: I25.10 - Atherosclerotic heart disease of [place] coronary artery without angina pectoris Status: Chronic (5) Type 2 diabetes mellitus ICD Code: E11.9 - Type 2 diabetes mellitus without complications Status: Chronic Assessment and Plan 72-year-old female right handed female with a past medical history of A. fib, CAD, CHF, HLD, GERD, DM who presented for slurred speech Acute left frontal ischemic stroke: with expressive aphasia- Improved - Neurology ff, speech therapy ff, PT daily, OT daily -Cannot have brain MRI secondary to bladder stimulator -carotid US negative. 2D echo - no significant findings -on Ecotrin per Neuro recommendation, - repeat head CT today- stable - restarted on pradaxa History of CAD: Denies chest pain or shortness of breath currently. Initial troponin within normal limits. EKG shows A. fib with no definite ischemic changes. 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 Elizabeth Kate on statins and Tricor Atrial fibrillation: Rate is currently controlled. - in SR on exam pradaxa resumed on Cardizem Echo ordered- normal EF Reported history of CHF:- in remission Mild CATHI: Creatinine improved. Hold home Bumex for now. Follow-up BMP.creatinine improved. DC IVF Diabetes mellitus: Monitor Accu-Cheks. Cover with SSI if needed. A1C 6.4 restart her metformin as OP Hyperlipidemia: Continue statin. History of hypothyroidsim- on synthroid DC home today with home health care visits- d/w CM Diet- heart healthy diabetic diet Activity as tolerated= weightbearing Meds as above- resume home meds FF up with PCP- Dr. Hercules in 3 days FF up with Dr. Ravi in 1 week d/w with patient expressed full understanding and appreciative of the staff and the care she experienced Problem Qualifiers (1) CVA (cerebral vascular accident): Qualified Codes: I63.10 - Cerebral infarction due to embolism of unspecified precerebral artery Darren Turcios MD Jul 25, 2017 09:35
[2017-07-25] MEDS: FENOFIBRATE 145 MG TAB PO SCH (10:10)
[2017-07-25] MEDS: ASPIRIN EC 325 MG TABEC PO SCH (10:11)
[2017-07-25] MEDS: PREGABALIN 100 MG CAP PO SCH ×3 (10:11→18:44)
[2017-07-25] MEDS: MULTIVITAMIN-OPHTHALMIC 1 TAB PO SCH (10:11)
[2017-07-25] MEDS: DILTIAZEM-CD 300 MG CAP ER PO SCH (10:11)
[2017-07-25] MEDS: PANTOPRAZOLE SOD 40 MG DELAYED RELEASE TAB PO SCH (10:11)
[2017-07-25] MEDS: METOPROLOL TARTRATE 50 MG TAB PO SCH ×4 (10:11→21:45)
[2017-07-25] MEDS: DULoxetine HCl DR 60 MG CAP PO SCH (10:11)
[2017-07-25] MEDS: PRAVASTATIN SOD 40 MG TAB PO SCH (10:12)
[2017-07-25] MEDS: SODIUM CHLORIDE 0.9% FLUSH 5 ML FLUSH IV FLUSH SCH ×2 (10:17→21:00)
[2017-07-25] MEDS: DABIGATRAN ETEXILATE 150 MG CAP PO SCH (21:16)
[2017-07-26] VITALS: BP 127/59; PULSE 71; RESP 20; TEMP 98; O2SAT 94
[2017-07-26 04:00] VITALS: BP 131/76; PULSE 71; RESP 20; TEMP 97.6; O2SAT 95
[2017-07-26] MEDS: LEVOTHYROXINE SODIUM 75 MCG TAB PO SCH (06:50)
--- NOTE | 2017-07-26 07:50 | HHI.FF ---
Face to Face Verification Diagnosis: (1) CVA (cerebral vascular accident) (2) Type 2 diabetes mellitus Physical Therapy Order: Evaluate and Treat, Improve ambulation, Strength and gait training Occupational Therapy Order: Evaluate and Treat, Improve ADL, Gross motor coordination, Fine motor coordination Speech Therapy Order: To Improve: Speech and communication skills, Cognitive skills Home Health Nursing Order: Medical education Signs/symptoms of disease process Diabetic education Nursing assessment with vital signs [place] Brim Curler Order: To Evaluate: Living conditions/environment, Support services I have seen patient Madison Rod on 07/26/17. My clinical findings support the need for the requested home health care services because: Ltd mobility - disease progression Deconditioned w/ increased weakness Need for psychosocial assistance Impaired cognition/judgement High risk of falls I certify that my clinical findings support that this patient is homebound because: Impaired cognitive ability/safety Need for psychosocial assistance Darren Turcios MD Jul 26, 2017 07:50
[2017-07-26] MEDS: INSULIN ASPART SUPPLEMENTAL SCALE SQ SCH ×2 (08:00→12:00)
[2017-07-26] MEDS: DULoxetine HCl DR 60 MG CAP PO SCH (08:05)
[2017-07-26] MEDS: FENOFIBRATE 145 MG TAB PO SCH (08:05)
[2017-07-26] MEDS: PRAVASTATIN SOD 40 MG TAB PO SCH (08:05)
[2017-07-26] MEDS: PREGABALIN 100 MG CAP PO SCH ×2 (08:05→15:08)
[2017-07-26] MEDS: DILTIAZEM-CD 300 MG CAP ER PO SCH (08:05)
[2017-07-26] MEDS: METOPROLOL TARTRATE 50 MG TAB PO SCH (08:05)
[2017-07-26] MEDS: MULTIVITAMIN-OPHTHALMIC 1 TAB PO SCH (08:05)
[2017-07-26] MEDS: DABIGATRAN ETEXILATE 150 MG CAP PO SCH (08:05)
[2017-07-26] MEDS: PANTOPRAZOLE SOD 40 MG DELAYED RELEASE TAB PO SCH (08:06)
[2017-07-26] MEDS: SODIUM CHLORIDE 0.9% FLUSH 5 ML FLUSH IV FLUSH SCH (08:17)
--- NOTE | 2017-07-26 08:55 | HHI.DS ---
Discharge Summary Admission Date Jul 23, 2017 at 16:37 Discharge Date: Jul 26, 2017 Admitting Diagnosis CVA (1) CVA (cerebral vascular accident) ICD Code: I63.9 - Cerebral infarction, unspecified Diagnosis: Principal Status: Acute (2) GERD (gastroesophageal reflux disease) ICD Code: K21.9 - Gastro-esophageal reflux disease without esophagitis Diagnosis: Secondary Status: Chronic (3) Hypothyroidism ICD Code: E03.9 - Hypothyroidism, unspecified Diagnosis: Secondary Status: Acute (4) Coronary artery disease ICD Code: I25.10 - Atherosclerotic heart disease of [place] coronary artery without angina pectoris Diagnosis: Secondary Status: Chronic (5) Type 2 diabetes mellitus ICD Code: E11.9 - Type 2 diabetes mellitus without complications Diagnosis: Secondary Status: Chronic Procedures none Brief History - From Admission 72-year-old female with a past medical history of A. fib, CAD, CHF, HLD, GERD, DM who presented for slurred speech. The patient is seen with her at bedside who assists with the history. The patient states that she was feeling a bit strange last night before bed, but they cannot really elaborate. The patient's states that she seemed fine at that time. Apparently the patient woke up at sometime earlier this morning and was having slurred speech. The patient's talked to her on the phone about 1:30 and after and then notices slurred speech and that is when I called 911. She has been occasionally able to form words, and occasionally slurring nonsensically. Patient's states that she had a hard time drinking from a straw earlier. He has noticed some mild right facial drooping as well. The patient denies any vision changes, swallowing difficulties, numbness, tingling, weakness. The patient has been on Pradaxa for atrial fibrillation. However, the patient had a abnormal recent stress test that was done due to occasional dyspnea on exertion. The patient denies any current chest pain or shortness breath and she denies any recent chest pain on exertion. Her director enterprise data architecture in [place] had Pradaxa on hold since Sunday 2 days ago and was planning on a cardiac catheterization tomorrow. HER FLANGING ROLL OPERATOR IS DR ELIZABETH Kate. Neurology was contacted from the ED and recommended full dose aspirin and he will consult. Discussed with patient and RN and ER and PA as well as family at bedside CBC/BMP: 07/24/17 0850 07/24/17 0850 Significant Findings Laboratory Tests Test 07/23/17 15:25 07/23/17 17:40 07/24/17 08:50 Monocytes (%) (Auto) 10.1 % (0.0-8.0) 10.4 % (0.0-8.0) Prothrombin Time 12.1 SEC (9.8-11.6) Blood Urea Nitrogen 20 MG/DL (7-18) Creatinine 1.02 MG/DL (0.50-1.00) Estimat Glomerular Filtration Rate 53 ML/MIN (>89) 83 ML/MIN (>89) Hemoglobin A1c 6.5 % (4.3-6.0) 6.4 % (4.3-6.0) Troponin I LESS THAN 0.02 NG/ML Urine Leukocyte Esterase TRACE (NEG) Eosinophils (%) (Auto) 4.8 % (0.0-4.0) Random Glucose 128 MG/DL (74-106) Total Protein 6.2 GM/DL (6.4-8.2) Albumin 3.2 GM/DL (3.4-5.0) Phosphorus Level 2.1 MG/DL (2.5-4.9) Chloride Level 109 MEQ/L (98-107) Triglycerides Level 259 MG/DL (42-150) HDL Cholesterol 22.2 MG/DL (40.0-60.0) Imaging Last Impressions Head CT 07/25/17 0800 Signed Impressions: Service Date/Time: Tuesday, July 25, 2017 08:47 - CONCLUSION: Evolving left frontal infarct with localized edema without hemorrhage. Pablo Giordano MD FACR Chest X-Ray 07/23/17 1510 Signed Impressions: Service Date/Time: Sunday, July 23, 2017 15:14 - CONCLUSION: 1. Cardiomegaly. Stable examination compared to previous. Jose Giordano MD Carotid Artery Ultrasound 07/23/17 0000 Signed Impressions: Service Date/Time: Sunday, July 23, 2017 17:01 - CONCLUSION: 1. No evidence for hemodynamically significant stenosis. 2. Antegrade flow in the bilateral vertebral arteries. Kyle Rios MD PE at Discharge awake and alert, + speech clear,fluent and spontaenous, oriented x 3 anicteric no bruit lungs clear irregular rhythm, abdomen soft extremities no edema moves all extremeties equally. grossly no sensory deficits, gait- steady- tongue midline, no facial asymmetry, pupils equally RTL, EOM full ROM Pt update on day of discharge awkae and alert, in SR, good readings BP and blood sugars speech very fluent and spontaenousl no motor deficits Hospital Course 72-year-old female right handed female with a past medical history of A. fib, CAD, CHF, HLD, GERD, DM who presented for slurred speech Acute left frontal ischemic stroke: with expressive aphasia- Improved - Neurology ff, speech therapy ff, PT daily, OT daily -Cannot have brain MRI secondary to bladder stimulator -carotid US negative. 2D echo - no significant findings -on Ecotrin per Neuro recommendation, - repeat head CT stable - restarted on pradaxa History of CAD: Denies chest pain or shortness of breath currently. Initial troponin within normal limits. EKG shows A. fib with no definite ischemic changes. Her director enterprise data architecture in [place] is Dr. Elizabeth Kate- instruct her to call and ff up with director enterprise data architecture as op on statins and Tricor Atrial fibrillation: Rate controlled pradaxa resumed on Cardizem Echo normal EF Reported history of CHF:- in remission Mild CATHI: Creatinine improved. Hold home Bumex for now. Follow-up BMP.creatinine improved. DC IVF Diabetes mellitus: Monitor Accu-Cheks. Cover with SSI if needed. A1C 6.4 restart her metformin as OP Hyperlipidemia: Continue statin. History of hypothyroidsim- on synthroid DC home today with home health care visits- d/w CM Pt Condition on Discharge: Stable Discharge Disposition: Disch w/ Home Health Serv Discharge Time: <= 30 minutes Discharge Instructions DIET: Follow Instructions for: Heart Healthy Diet, Diabetic Diet Speech Therapy-Diet Recommends: Regular Activities you can perform: Weight Bearing as [place] Follow up Referrals: Neurology - 1 Week with Hao Ravi PhD, MD PCP Follow-up - 3-5 Days with [facility] Continued Medications: Beta-Carotene(A)-Vits C,E/Mins (Vision Vitamins) 1 Each Tablet 1000 UNIT PO DAILY Dabigatran (Pradaxa) 150 Mg Cap 150 MG PO BID for Blood Clot Prevention, #60 CAP 0 Refills Diltiazem ER 24 HR (Diltiazem ER 24 HR) 300 Mg Liz 300 MG PO DAILY, #30 TAB [address] (Cymbalta DR) 60 Mg Capdr 60 MG PO DAILY, #30 CAP [address] (Nexium) 40 Mg Capdr 40 MG PO DAILY, CAP 0 Refills Fenofibrate (Fenofibrate) 50 Mg Cap 160 MG PO DAILY, #30 CAP 0 Refills Levothyroxine (Levothyroxine) 75 Mcg Tab 75 MCG PO DAILY for Thyroid, #30 TAB 0 Refills Metformin (Metformin) 500 Mg Tab 500 MG PO BIDPC for Blood Sugar Management, #60 TAB 0 Refills With meals Metoprolol Tartrate (Metoprolol Tartrate) 50 Mg Tab 50 MG PO BID, #30 TAB 0 Refills Multiple Vitamins W/ Minerals (Ocuvite) 1 Tab 1 TAB PO DAILY for Nutritional Supplement, TAB 0 Refills Potassium Chloride ER (Potassium Chloride ER) 20 Meq Tab 20 MEQ PO DAILY for Electrolyte Replacement, #30 TAB 0 Refills Pregabalin (Lyrica) 100 Mg Cap 100 MG PO TID, #90 CAP 0 Refills Simvastatin (Simvastatin) 20 Mg Tab 20 MG PO DAILY for Cholesterol Management, #30 TAB 0 Refills Darren Turcios MD Jul 26, 2017 08:55
[2017-07-26 09:04] VITALS: BP 143/63; PULSE 68; RESP 18; TEMP 97.3; O2SAT 96
[2017-07-26 12:39] VITALS: BP 116/64; PULSE 67; RESP 18; TEMP 98.2; O2SAT 96
== END 2017-07-26 15:33 | disposition home health service (06) | DRG 65 ==
LOC: NEPC 14:29 → NEDA 16:37 → N05A 18:31
PROVIDERS: ADMIT Internal Medicine; ATTEND Internal Medicine
DX: I63.9 Cerebral infarction, unspecified (principal); N17.9 Acute kidney failure, unspecified; I50.9 Heart failure, unspecified; R47.01 Aphasia; R29.810 Facial weakness; I48.91 Unspecified atrial fibrillation; E11.9 Type 2 diabetes mellitus without complications; E03.9 Hypothyroidism, unspecified; E78.5 Hyperlipidemia, unspecified; Z79.84 Long term (current) use of oral hypoglycemic drugs; I25.10 Atherosclerotic heart disease of native coronary artery without angina pectoris; Z95.5 Presence of coronary angioplasty implant and graft; K21.9 Gastro-esophageal reflux disease without esophagitis; Z86.711 Personal history of pulmonary embolism; E66.9 Obesity, unspecified; Z68.35 Body mass index [BMI] 35.0-35.9, adult
CPT/HCPCS: 70450; 71010; 80048; 80053; 80061; 81001; 82550; 82948; 83036; 83735; 84100; 84439; 84443; 84484; 85025; 85610; 93005; 93306; 93880; 96360; J1815; J7030; J7040

== ENCOUNTER 2018-01-23 12:36 | Emergency (ER) | payer OTHER ==
[~2018-01-23 12:36] MED LIST changes: +BETA1TAB5 PO; -CALC12502 PO; -HYDR-3533 PO; -PERI8.6T PO; -WALKER/ADULT/FO1 MIS
[2018-01-23 12:49] VITALS: BP 119/65; PULSE 74; RESP 18; TEMP 97.9; O2SAT 97
--- NOTE | 2018-01-23 13:21 | PD ---
HPI Chief Complaint: Respiratory Symptoms Time Seen by Provider: 13:06 Travel History International Travel<30 days: No Contact w/Intl Traveler<30days: No Traveled to known affect area: No History of Present Illness HPI 72-year-old female says she has been sick for about a week. She had upper respiratory infection and then she started wheezing and coughing. She thinks that last night she may have coughed up some flecks of blood. She thinks she has had fever and sweating. She has taken some [id number] medication. She is currently on Pradaxa since she had a stroke a few months ago. The stroke affected her speech. She had a pulmonary embolus about 7 or 8 years ago. PFSH Past Medical History Arthritis: Yes Atrial Fibrillation: Yes Anxiety: Yes Depression: Yes Heart Rhythm Problems: Yes (a-fib ) Cancer: No Cardiac Catheterization: Yes Cardiovascular Problems: Yes (heart failure, stent, a fib) High Cholesterol: Yes Chest Pain: Yes Congestive Heart Failure: Yes COPD: No (questionable- pt states has pumonary disease ) Cerebrovascular Accident: Yes (cva 04/2017 left side weakness per patient) Coronary Artery Disease: Yes Diabetes: Yes Patient Takes Glucophage: Yes Diminished Hearing: No Endocrine: No Gastrointestinal Disorders: Yes (GERD) GERD: Yes Headaches: Yes Hepatitis: No Hiatal Hernia: No Hypertension: Yes Immune Disorder: No Medical other: Yes (neuropathy to bilat feet and lower back, hx of edema to feet) Musculoskeletal: Yes Neurologic: No Psychiatric: No Reproductive: No Respiratory: No Immunizations Current: Yes Myocardial Infarction: No Thyroid Disease: Yes Ulcer: No Tetanus Vaccination: < 5 Years Influenza Vaccination: No ?: Not Menopausal: Yes Past Surgical History Abdominal Surgery: Yes (INTERSTEM STIMULATOR hip for bladder) AICD: No Body Medical Devices: [employer] 3058 NEUROSTIMULATOR SERIAL NO. [id number] Cardiac Surgery: Yes (stents ) Coronary Stent: Yes (X1) Ear Surgery: No Endocrine Surgery: No Eye Surgery: Yes (anay cateracts 2014 / RIGHT TORN RETINA 2016) Genitourinary Surgery: No Gynecologic Surgery: Yes (hysterectomy 2006) Hysterectomy: Yes Joint Replacement: No Oral Surgery: No Pacemaker: No Thoracic Surgery: No Other Surgery: Yes (BILAT CARPAL TUNNEL , HEMORRHOIDECTOMY) Social History Alcohol Use: Yes Tobacco Use: No Substance Use: No Allergies-Medications (Allergen,Severity, Reaction): Coded Allergies: carisoprodol (Verified Allergy, Severe, Hives, 01/23/18) nifedipine (Verified Allergy, Severe, Respiratory Failure, 01/23/18) pentazocine (Verified Allergy, Severe, Dizziness, 01/23/18) tetanus toxoid, adsorbed (Verified Allergy, Severe, Swelling, 01/23/18) adhesive (Verified Allergy, Intermediate, 01/23/18) Reported Meds & Prescriptions Reported Meds & Active Scripts Active Reported Eplerenone 25 Mg Tab 25 Mg PO DAILY Vision Vitamins (Beta-Carotene(A)-Vits C,E/Mins) 1 Each Tablet 1,000 Unit PO DAILY Metformin (Metformin HCl) 500 Mg Tab 500 Mg PO BIDPC With meals Simvastatin 20 Mg Tab 20 Mg PO DAILY Pradaxa (Dabigatran) 150 Mg Cap 150 Mg PO BID Ocuvite (Multiple Vitamins W/ Minerals) 1 Tab 1 Tab PO DAILY Nexium (Esomeprazole DR) 40 Mg Capdr 40 Mg PO DAILY Metoprolol Tartrate 50 Mg Tab 50 Mg PO BID Potassium Chloride ER (Potassium Chloride) 20 Meq Tab 20 Meq PO DAILY Lyrica (Pregabalin) 100 Mg Cap 100 Mg PO TID Levothyroxine (Levothyroxine Sodium) 75 Mcg Tab 75 Mcg PO DAILY Fenofibrate 50 Mg Cap 160 Mg PO DAILY Diltiazem ER 24 HR 300 Mg Liz 300 Mg PO DAILY Cymbalta DR (Duloxetine HCl) 60 Mg Capdr 60 Mg PO DAILY Bumetanide 1 Mg Tab 1 Mg PO DAILY Review of Systems General / Constitutional: Positive: Fever, Chills Eyes: No: Diploplia, Blurred Vision HENT: No: Headaches, Vertigo Cardiovascular: No: Chest Pain or Discomfort Respiratory: Positive: Cough, Shortness of Breath, Hemoptysis Gastrointestinal: No: Nausea, Vomiting Genitourinary: No: Frequency, Dysuria Musculoskeletal: No: Myalgias Skin: No Rash, No Itching Endocrine: No: Heat Intolerance Hematologic/Lymphatic: No: Easy Bruising Physical Exam Narrative GENERAL: Well-developed female SKIN: Focused skin assessment warm/dry. HEAD: Atraumatic. Normocephalic. EYES: Pupils equal and round. No scleral icterus. No injection or drainage. ENT: No nasal bleeding or discharge. Mucous membranes pink and moist. NECK: Trachea midline. No JVD. CARDIOVASCULAR: Regular rate and rhythm. No murmur appreciated. RESPIRATORY: No accessory muscle use. There are scattered rhonchi. T. Breath sounds equal bilaterally. GASTROINTESTINAL: Abdomen soft, non-tender, nondistended. Hepatic and splenic margins not palpable. MUSCULOSKELETAL: No obvious deformities. No clubbing. No cyanosis. No edema. NEUROLOGICAL: Awake and alert. No obvious cranial nerve deficits. Motor grossly within normal limits. Normal speech. PSYCHIATRIC: Appropriate mood and affect; insight and judgment normal. Data Data Last Documented VS Vital Signs Date Time Temp Pulse Resp B/P (MAP) Pulse Ox O2 Delivery O2 Flow Rate FiO2 01/23/18 16:08 70 20 119/59 (79) 95 Room Air 01/23/18 12:49 97.9 Orders Orders Complete Blood Count With Diff (01/23/18 13:15) Basic Metabolic Panel (Bmp) (01/23/18 13:15) Prothrombin Time / Inr (Pt) (01/23/18 13:15) Act Partial Throm Time (Ptt) (01/23/18 13:15) Blood Culture (01/23/18 13:15) Influenzae A/B Antigen (01/23/18 13:15) Chest, Single Ap (01/23/18 13:15) Ct Pulmonary Angiogram (01/23/18 15:03) Iohexol 350 Inj (Omnipaque 350 Inj) (01/23/18 15:38) Labs Laboratory Tests Test 01/23/18 14:25 White Blood Count 4.4 TH/MM3 Red Blood Count 4.86 MIL/MM3 Hemoglobin 14.1 GM/DL Hematocrit 42.9 % Mean Corpuscular Volume 88.2 FL Mean Corpuscular Hemoglobin 29.1 PG Mean Corpuscular Hemoglobin Concent 33.0 % Red Cell Distribution Width 14.1 % Platelet Count 152 TH/MM3 Mean Platelet Volume 10.1 FL Neutrophils (%) (Auto) 48.8 % Lymphocytes (%) (Auto) 30.6 % Monocytes (%) (Auto) 14.3 % Eosinophils (%) (Auto) 4.9 % Basophils (%) (Auto) 1.4 % Neutrophils # (Auto) 2.1 TH/MM3 Lymphocytes # (Auto) 1.4 TH/MM3 Monocytes # (Auto) 0.6 TH/MM3 Eosinophils # (Auto) 0.2 TH/MM3 Basophils # (Auto) 0.1 TH/MM3 CBC Comment DIFF FINAL Differential Comment Prothrombin Time 13.2 SEC Prothromb Time International Ratio 1.3 RATIO Activated Partial Thromboplast Time 40.9 SEC Blood Urea Nitrogen 17 MG/DL Creatinine 0.86 MG/DL Random Glucose 119 MG/DL Calcium Level 9.1 MG/DL Sodium Level 140 MEQ/L Potassium Level 3.9 MEQ/L Chloride Level 106 MEQ/L Carbon Dioxide Level 27.4 MEQ/L Anion Gap 7 MEQ/L Estimat Glomerular Filtration Rate 65 ML/MIN MDM Medical Decision Making Medical Screen Exam Complete: Yes Emergency Medical Condition: Yes Medical Record Reviewed: Yes Differential Diagnosis Differential includes bronchitis, pulmonary embolus, space-occupying lesion Narrative Course Chest x-ray is read as negative. Patient has had a previous pulmonary embolus and even though she is on Pradaxa feels she should do a scan to rule out pulmonary embolus. This has been ordered. Of note her test for influenza is positive for influenza A. CT pulmonary angiogram is negative for embolus or nodule Diagnosis Primary Impression: Influenza A Additional Instructions: Drink plenty of fluids, take Tylenol for fever Disposition: DISCHARGE HOME Condition: Stable Too Cuevas MD Jan 23, 2018 13:21
[2018-01-23] MEDS ORDERED: EPLE25TA PO (13:22)
--- NOTE | 2018-01-23 13:31 | RADRPT ---
EXAM DATE/TIME: 01/23/2018 13:22 [facility] COMPARISON: CHEST SINGLE AP, July 23, 2017, 15:14. INDICATIONS : Cough, short of breath. MEDICAL HISTORY : Stroke. Cardiovascular disease Hypertension SURGICAL HISTORY : Hysterectomy. Coronary artery stent. ENCOUNTER: Initial ACUITY: 1 week PAIN SCORE: 0/10 LOCATION: Bilateral chest FINDINGS: A single view of the chest demonstrates the lungs to be symmetrically aerated without evidence of mas s, infiltrate or effusion. The heart size is enlarged but stable.. Osseous structures are intact. CONCLUSION: No acute disease. No significant change has occurred. Sven Hall MD on January 23, 2018 at 13:29 Board Certified Radiologist. This report was verified electronically.
[2018-01-23 14:42] VITALS: BP 125/74; PULSE 78; RESP 20; O2SAT 94
[2018-01-23 14:44] LABS: AUTOMATED NEUTROPHIL # 2.1 TH/MM3 (1.8-7.7); BASOPHIL # 0.1 TH/MM3 (0-0.2); BASOPHIL % 1.4 % (0.0-2.0); EOSINOPHIL # 0.2 TH/MM3 (0-0.4); EOSINOPHIL % 4.9 % (0.0-4.0); HEMATOCRIT 42.9 % (35.0-46.0); HEMOGLOBIN 14.1 GM/DL (11.6-15.3); LYMPH % 30.6 % (9.0-44.0); LYMPHOCYTE # 1.4 TH/MM3 (1.0-4.8); MEAN CELL VOLUME 88.2 FL (80.0-100.0); MEAN CORPUSCULAR HEMOGLOBIN 29.1 PG (27.0-34.0); MEAN PLATELET VOLUME 10.1 FL (7.0-11.0); MONO % 14.3 % (0.0-8.0); MONOCYTE # 0.6 TH/MM3 (0-0.9); NEUT % 48.8 % (16.0-70.0); PLATELET COUNT 152 TH/MM3 (150-450); RED BLOOD COUNT 4.86 MIL/MM3 (4.00-5.30); RED CELL DISTRIBUTION WIDTH 14.1 % (11.6-17.2); WHITE BLOOD COUNT 4.4 TH/MM3 (4.0-11.0)
[2018-01-23 14:54] LABS: CALCIUM 9.1 MG/DL (8.5-10.1)
[2018-01-23 14:55] LABS: BICARBONATE 27.4 MEQ/L (21.0-32.0)
[2018-01-23 14:58] LABS: CREATININE 0.86 MG/DL (0.50-1.00)
[2018-01-23 15:00] VITALS: BP 125/74; PULSE 78; RESP 20; O2SAT 94
[2018-01-23 15:09] LABS: INTERNATIONAL NORMALIZED RATIO 1.3 RATIO; PROTHROMBIN TIME - PATIENT 13.2 SEC (9.8-11.6)
[2018-01-23 15:30] VITALS: BP 112/63; PULSE 68; RESP 18; O2SAT 95
[2018-01-23] MEDS ORDERED: IOHEXOL 350 MG/ML 10 ML VIAL (for RAD DIAG) IVCONTRAST ONE (15:38)
--- NOTE | 2018-01-23 15:44 | RADRPT ---
EXAM DATE/TIME: 01/23/2018 15:29 [facility] COMPARISON: No previous studies available for comparison. INDICATIONS : Short of breath with hemoptysis. IV CONTRAST: 65 cc Omnipaque 350 (iohexol) IV RADIATION DOSE: 20.12 CTDIvol (mGy) MEDICAL HISTORY : Diabetes mellitus type 2. Hypertension. Chronic obstructive pulmonary disease.CHF. SURGICAL HISTORY : Coronary stent. ENCOUNTER: Initial ACUITY: 1 week PAIN SCALE: 0/10 LOCATION: chest TECHNIQUE: Volumetric scanning of the chest was performed using a pulmonary embolism protocol MIP images were re constructed. Using automated exposure control and adjustment of the mA and/or kV according to patien t size, radiation dose was kept as low as reasonably achievable to obtain optimal diagnostic quality images. DICOM format image data is available electronically for review and comparison. Follow-up recommendations for detected pulmonary nodules are based at a minimum on nodule size and pa tient risk factors according to Fleischner Society Guidelines. FINDINGS: PULMONARY ARTERIES: No filling defects are seen in the pulmonary arteries through the segmental level. LUNGS: There is no consolidation or pneumothorax . No concerning pulmonary nodule is visualized. Mild inter stitial changes are seen bilaterally. PLEURAE: There is no pleural thickening or pleural effusion. MEDIASTINUM: There is good visualization of the great vessels of the middle mediastinum. No evidence of mediastin al or hilar adenopathy/mass. The heart size is diffusely enlarged. MUSCULOSKELETAL: Within normal limits for patient age. MISCELLANEOUS: The visualized upper abdominal organs demonstrate no acute abnormality. CONCLUSION: 1. No evidence of pulmonary embolism. 2. Mild interstitial changes throughout both lung lopez. 3. Diffuse cardiomegaly. Sven Hall MD on January 23, 2018 at 15:40 Board Certified Radiologist. This report was verified electronically.
[2018-01-23 16:08] VITALS: BP 119/59; PULSE 70; RESP 20; O2SAT 95
[2018-01-23 17:00] VITALS: BP 122/67; PULSE 68; RESP 20; O2SAT 96
== END 2018-01-23 17:36 | disposition home or self-care (01) ==
LOC: PHED 12:36
DX: J09.X2 Influenza due to identified novel influenza A virus with other respiratory manifestations (principal); R06.02 Shortness of breath; I69.928 Other speech and language deficits following unspecified cerebrovascular disease; I51.7 Cardiomegaly; I48.91 Unspecified atrial fibrillation; I11.0 Hypertensive heart disease with heart failure; I50.9 Heart failure, unspecified; I25.10 Atherosclerotic heart disease of native coronary artery without angina pectoris; Z86.711 Personal history of pulmonary embolism
CPT/HCPCS: 71045; 71275; 80048; 85025; 85610; 85730; 87040; 87804; 99285; Q9967